=== PATIENT | male | born 1950 | race Caucasian/White ===

== ENCOUNTER 2017-05-12 08:06 | Inpatient (IN) | payer OTHER, MEDICARE ==
[2017-05-12] VITALS (21 sets, daily range): BP systolic 124–163; BP diastolic 77–109; PULSE 68–96; RESP 16–20; TEMP 98–98.3; O2SAT 93–98
[~2017-05-12] VITALS: Ht 180.3 cm; Wt 101.0 kg
[~2017-05-12 08:06] MED LIST: DOXY100T PO; SULF-154 PO
--- NOTE | 2017-05-12 08:11 | PD ---
HPI Chief Complaint: chest discomfort Time Seen by Provider: 08:11 Travel History International Travel<30 days: No Contact w/Intl Traveler<30days: No Traveled to known affect area: No History of Present Illness HPI 66-year-old male came to the emergency room with history of a week and a half of chest pressure, jaw pain and shortness of breath when he lays down. Patient says that he's been getting it even when he works but it's more pronounced at night when he goes to lay down at night. [place] 0 and he attributes to the cold weather. Once he came back to [place] his symptoms have improved slightly but he's been noticing the shortness of breath especially with the slightest exertion like tying his shoelaces. This is associated with extreme perspiration as well. His finally was concerned for his heart and asked him to come to the emergency room. Patient's blood pressure was 160/109. He said his chest pressure was almost gone at this point. But he did looked uncomfortable. Patient does not have a primary care physician and has never had a stress test for any reason. He smokes half a pack per day for past 40 years. Patient has been taking aspirin/Advil for his discomfort daily. [facility] Past Medical History Narrative Medical List of his past medical, surgical, social and family history is reviewed from the nursing note. Diminished Hearing: No Kidney Stones: Yes Immunizations Current: No Past Surgical History Genitourinary Surgery: Yes (STONE BLADDER REMOVED 12/01) Social History Alcohol Use: No Tobacco Use: Yes (PIPE) Substance Use: No Allergies-Medications (Allergen,Severity, Reaction): Coded Allergies: No Known Allergies (Verified Allergy, Unknown, 05/12/17) Comments No known drug allergies. Reported Meds & Prescriptions Reported Meds & Active Scripts Active Narrative Medication List of his home medications reviewed from the nursing note. Review of Systems Except as stated in HPI: all other systems reviewed are Neg Cardiovascular: Positive: Chest Pain or Discomfort Respiratory: Positive: Shortness of Breath Physical Exam Narrative GENERAL: Awake, alert, mild distress, anxious SKIN: Focused skin assessment warm/dry. Diaphoretic HEAD: Atraumatic. Normocephalic. EYES: Pupils equal and round. No scleral icterus. No injection or drainage. ENT: No nasal bleeding or discharge. Mucous membranes pink and moist. NECK: Trachea midline. No JVD. CARDIOVASCULAR: Regular rate and rhythm. No murmur appreciated. RESPIRATORY: No accessory muscle use. Clear to auscultation. Breath sounds equal bilaterally. GASTROINTESTINAL: Abdomen soft, non-tender, nondistended. Hepatic and splenic margins not palpable. MUSCULOSKELETAL: No obvious deformities. No clubbing. No cyanosis. No edema. NEUROLOGICAL: Awake and alert. No obvious cranial nerve deficits. Motor grossly within normal limits. Normal speech. PSYCHIATRIC: Appropriate mood and affect; insight and judgment normal. Data Data Last Documented VS Orders Orders Electrocardiogram (05/12/17 08:20) Basic Metabolic Panel (Bmp) (05/12/17 08:20) B-Type Natriuretic Peptide (05/12/17 08:20) Ckmb (Isoenzyme) Profile (05/12/17 08:20) Complete Blood Count With Diff (05/12/17 08:20) Magnesium (Mg) (05/12/17 08:20) Prothrombin Time / Inr (Pt) (05/12/17 08:20) Act Partial Throm Time (Ptt) (05/12/17 08:20) Troponin I (05/12/17 08:20) Chest, Single Ap (05/12/17 08:20) Ecg Monitoring (05/12/17 08:20) Bilateral Bp Monitoring (05/12/17 08:20) Iv Access Insert/Monitor (05/12/17 08:20) Oximetry (05/12/17 08:20) Oxygen Administration (05/12/17 08:20) Aspirin Chew (Aspirin Chew) (05/12/17 08:30) Nitroglycerin 2% Oint (Nitroglycerin 2% (05/12/17 08:30) Sodium Chloride 0.9% Flush (Ns Flush) (05/12/17 08:30) CKMB (05/12/17 08:15) CKMB% (05/12/17 08:15) Heparin Inj (Heparin Inj) (05/12/17 09:45) Heparin Inj (Heparin Inj) (05/12/17 15:45) Heparin Inj (Heparin Inj) (05/12/17 15:45) Heparin-D5w 25,000 U/250 Ml (Heparin-D5w (05/12/17 09:45) Act Partial Throm Time (Ptt) (05/12/17 09:31) Cbc No Diff, Includes Plts (05/12/17 09:31) Metoprolol Tartrate (Lopressor) (05/12/17 21:00) Metoprolol Tartrate (Lopressor) (05/12/17 09:45) Admit To Inpatient (05/12/17 ) Vital Signs (Adult) Q4H (05/12/17 09:35) Activity Oob With Assistance (05/12/17 09:35) Trade Analyst / Telemetry .CONTINUOUS (05/12/17 09:35) Diet Npo (05/12/17 Breakfast) Sodium Chlor 0.9% 1000 Ml Inj (Ns 1000 M (05/12/17 09:35) Sodium Chloride 0.9% Flush (Ns Flush) (05/12/17 09:45) Sodium Chloride 0.9% Flush (Ns Flush) (05/12/17 21:00) Acetaminophen (Tylenol) (05/12/17 09:45) Ondansetron Inj (Zofran Inj) (05/12/17 09:45) Complete Blood Count With Diff (05/13/17 06:00) Troponin I (05/12/17 09:35) Troponin I (05/12/17 15:35) Electrocardiogram (05/12/17 09:35) Resp Oxygen Leo C Titrat 1-4 L (05/12/17 ) Enoxaparin Inj (Lovenox Inj) (05/12/17 10:00) Naloxone Inj (Narcan Inj) (05/12/17 09:45) Magnesium Hydroxide Liq (Milk Of Magnesi (05/12/17 09:45) Sennosides (Senokot) (05/12/17 09:45) Bisacodyl Supp (Dulcolax Supp) (05/12/17 09:45) Lactulose Liq (Lactulose Liq) (05/12/17 09:45) Inpatient Certification (05/12/17 ) Nitroglycerin-D5w 50 Mg/250 Ml (Nitrogly (05/12/17 10:00) Admit Order (Ed Use Only) (05/12/17 09:48) Atorvastatin (Lipitor) (05/12/17 10:00) Atorvastatin (Lipitor) (05/13/17 21:00) Labs Laboratory Tests Test 05/12/17 08:15 White Blood Count 11.2 TH/MM3 Red Blood Count 4.93 MIL/MM3 Hemoglobin 15.3 GM/DL Hematocrit 46.6 % Mean Corpuscular Volume 94.5 FL Mean Corpuscular Hemoglobin 31.0 PG Mean Corpuscular Hemoglobin Concent 32.8 % Red Cell Distribution Width 13.1 % Platelet Count 202 TH/MM3 Mean Platelet Volume 9.8 FL Neutrophils (%) (Auto) 75.7 % Lymphocytes (%) (Auto) 14.9 % Monocytes (%) (Auto) 6.7 % Eosinophils (%) (Auto) 2.3 % Basophils (%) (Auto) 0.4 % Neutrophils # (Auto) 8.4 TH/MM3 Lymphocytes # (Auto) 1.7 TH/MM3 Monocytes # (Auto) 0.8 TH/MM3 Eosinophils # (Auto) 0.3 TH/MM3 Basophils # (Auto) 0.0 TH/MM3 CBC Comment DIFF FINAL Differential Comment Prothrombin Time 10.4 SEC Prothromb Time International Ratio 1.0 RATIO Activated Partial Thromboplast Time 30.8 SEC Blood Urea Nitrogen 26 MG/DL Creatinine 1.40 MG/DL Random Glucose 91 MG/DL Calcium Level 8.2 MG/DL Magnesium Level 2.2 MG/DL Sodium Level 142 MEQ/L Potassium Level 4.4 MEQ/L Chloride Level 110 MEQ/L Carbon Dioxide Level 24.8 MEQ/L Anion Gap 7 MEQ/L Estimat Glomerular Filtration Rate 51 ML/MIN Total Creatine Kinase 150 U/L Creatine Kinase MB 3.3 NG/ML Troponin I 10.70 NG/ML B-Type Natriuretic Peptide 946 PG/ML MDM Medical Decision Making Medical Screen Exam Complete: Yes Emergency Medical Condition: Yes Medical Record Reviewed: Yes Interpretation(s) Twelve-lead EKG was reviewed by me. Normal sinus rhythm, left axis deviation, LVH with LV strain, PVCs and PACs. Heart rate of 85 bpm. Differential Diagnosis Non-STEMI, ACS, congestive heart failure Narrative Course 9:40 AM blood test results are back and suggestive of a significantly elevated troponin. Patient initially was given 2 baby aspirin's and 2 inch of Nitropaste which brought his blood pressure down to 135/95. I started him on a heparin bolus and drip and nitro drip. There has been a page sent to the mold tooler. Patient is a non-STEMI and would need to be transferred to the [facility] in preparation for cardiac catheterization soon. Currently patient's chest pressure or pain is 0 out of 10. Chest x-ray has been read by the radiologist as a possible right lower lobe infiltrate which in my opinion as part of the congestive heart failure possibly. Patient does not have any history of fever. I have not put him on any antibiotics. 9:49 AM the case was just discussed with Dr. Hightower from cardiology and he is in agreement with the plan. Patient has been admitted to the CICU at the [facility] under the hospitalist service. Plan will be to do a cardiac catheterization. Critical Care Narrative Aggregate critical care time was 45 minutes. Time to perform other separately billable procedures was not included in the critical care time. My time did not include minutes spent treating any other patients simultaneously or on activities that did not directly contribute to the patient's treatment. The services I provided to this patient were to treat and/or prevent clinically significant deterioration that could result in: Non-STEMI, heparin bolus and drip, nitro drip I provided critical care services requiring my management, as noted below: Chart data review, documentation time, medication orders and management, vital sign assessments/reviewing monitor data, ordering and reviewing lab tests, ordering and interpreting/reviewing x-rays and diagnostic studies, care of the patient and discussion of the patient with the admitting physicians. Procedures EKG Prior to Arrival: No Physician Communication Physician Communication Dr. Hightower Diagnosis Primary Impression: Non-STEMI (non-ST elevated myocardial infarction) Additional Impression: Congestive heart failure Qualified Codes: I50.9 - Heart failure, unspecified Admitting Information Admitting Physician Requests: Admit Scripts Multiple Vitamins W/ Minerals (Thera M Plus) 1 Tab 1 TAB PO DAILY for Nutritional Supplement, #100 TAB 1 Refill Prov: Gracie Donovan MD 05/17/17 Pantoprazole (Pantoprazole) 40 Mg Tab 40 MG PO DAILY@06 for Prevent Stress Ulcers, #14 TAB Prov: Gracie Donovan MD 05/17/17 Docusate Sodium (Dok) 100 Mg Cap 100 MG PO BID for Constipation, #28 CAP Prov: Gracie Donovan MD 05/17/17 Oxycodone HCl/Acetaminophen (Oxycodone-Acetaminophen 5-325) 5 Mg-325 Mg Tablet 1 TAB PO Q3H Y for PAIN SCALE 1 TO 5, #30 TAB Prov: Gracie Donovan MD 05/17/[address] (Aspirin DR) 81 Mg Tabdr 81 MG PO DAILY for Blood Clot Prevention, #100 TAB 3 Refills Prov: Gracie Donovan MD 05/17/17 Lisinopril (Lisinopril) 5 Mg Tab 2.5 MG PO DAILY for Blood Pressure Management, #30 TAB 3 Refills Prov: Gracie Donovan MD 05/17/17 Metoprolol Tartrate (Metoprolol Tartrate) 25 Mg Tab 12.5 MG PO BID for Blood Pressure Management, #60 TAB 3 Refills Prov: Gracie Donovan MD 05/17/17 Atorvastatin (Atorvastatin) 40 Mg Tab 80 MG PO HS for Cholesterol Management, #60 TAB 3 Refills Prov: Gracie Donovan MD 05/17/17 Amiodarone (Amiodarone) 200 Mg Tab 400 MG PO Q8HR for Regulate Heart Beat, #28 TAB Prov: Gracie Donovan MD 05/17/17 Rachel Vasques MD May 12, 2017 08:11
[2017-05-12] MEDS ORDERED: ASPI-183 PO (08:22)
[2017-05-12] MEDS ORDERED: ASPIRIN 81 MG CHEW TAB PO ONE (08:30)
[2017-05-12] MEDS ORDERED: NITROGLYCERIN 2% OINT 1 GM PACKET TOP ONE (08:30)
[2017-05-12] MEDS ORDERED: SODIUM CHLORIDE 0.9% FLUSH 10 ML FLUSH IVF PRN (08:30)
--- NOTE | 2017-05-12 08:42 | RADRPT ---
EXAM DATE/TIME: 05/12/2017 08:31 [place] COMPARISON: No previous studies available for comparison. INDICATIONS : Short of breath x 2-3 days & chest pain x 1 week. MEDICAL HISTORY : Renal calculi. SURGICAL HISTORY : Bladder stone removal. Back surgery. ENCOUNTER: Initial ACUITY: 1 week PAIN SCORE: 5/10 LOCATION: chest FINDINGS: Mild diffuse interstitial prominence. Patchy airspace disease in the medial right lower lung zone. Ca rdiac silhouette is in the upper limits of normal given portable technique. Osseous structures are in tact. CONCLUSION: 1. Patchy airspace disease in the medial right lower lung zone concerning for pneumonia or aspiration in the appropriate clinical setting. Followup to resolution is recommended. Andre Jiang MD on May 12, 2017 at 8:38 Board Certified Radiologist. This report was verified electronically.
[2017-05-12 09:00] LABS: AUTOMATED NEUTROPHIL # 8.4 TH/MM3 (1.8-7.7); BASOPHIL % 0.4 % (0.0-2.0); EOSINOPHIL # 0.3 TH/MM3 (0-0.4); EOSINOPHIL % 2.3 % (0.0-4.0); HEMATOCRIT 46.6 % (39.0-51.0); HEMO FLAGS DIFF FINAL; LYMPH % 14.9 % (9.0-44.0); LYMPHOCYTE # 1.7 TH/MM3 (1.0-4.8); MEAN CELL VOLUME 94.5 FL (80.0-100.0); MEAN CORPUSCULAR HGB CONC 32.8 % (32.0-36.0); MONO % 6.7 % (0.0-8.0); NEUT % 75.7 % (16.0-70.0); PLATELET COUNT 202 TH/MM3 (150-450); RED BLOOD COUNT 4.93 MIL/MM3 (4.50-5.90); RED CELL DISTRIBUTION WIDTH 13.1 % (11.6-17.2); WHITE BLOOD COUNT 11.2 TH/MM3 (4.0-11.0)
[2017-05-12 09:07] LABS: CHLORIDE 110 MEQ/L (98-107); POTASSIUM 4.4 MEQ/L (3.5-5.1); SODIUM (NA) 142 MEQ/L (136-145)
[2017-05-12 09:10] LABS: ANION GAP 7 MEQ/L (5-15); BICARBONATE 24.8 MEQ/L (21.0-32.0); BLOOD UREA NITROGEN 26 MG/DL (7-18); MAGNESIUM 2.2 MG/DL (1.5-2.5)
[2017-05-12 09:12] LABS: APTT (PATIENT) 30.8 SEC (24.3-30.1); PROTHROMBIN TIME - PATIENT 10.4 SEC (9.8-11.6)
[2017-05-12 09:14] LABS: GLOMERULAR FILTRATION RATE 51 ML/MIN (>89)
[2017-05-12 09:17] LABS: CREATINE KINASE 150 U/L (39-308)
[2017-05-12] MEDS ORDERED: SODIUM CHLOR 0.9% 1000 ML INJ 1,000 ML IV SCH (09:35)
[2017-05-12] MEDS ORDERED: SODIUM CHLORIDE 0.9% FLUSH 10 ML FLUSH IV FLUSH PRN ×2 (09:45→17:15)
[2017-05-12] MEDS ORDERED: HEPARIN SODIUM - IV 10,000 UNITS/10 ML VIAL IV ONE (09:45)
[2017-05-12] MEDS ORDERED: LACTULOSE SYRUP 20 GM/30 ML CUP PO PRN (09:45)
[2017-05-12] MEDS ORDERED: NITROGLYCERIN-D5W 50 MG/250 ML 250 ML IV PRN ×2 (09:45→10:00)
[2017-05-12] MEDS ORDERED: METOPROLOL TARTRATE 25 MG TAB PO ONE (09:45)
[2017-05-12] MEDS ORDERED: SENNOSIDES 8.6 MG TAB PO PRN (09:45)
[2017-05-12] MEDS ORDERED: BISACODYL 10 MG SUPP RECTAL PRN (09:45)
[2017-05-12] MEDS ORDERED: NALOXONE HCL 0.4 MG/ML AMP IV PUSH PRN (09:45)
[2017-05-12] MEDS ORDERED: MAGNESIUM HYDROXIDE SUSP 30 ML CUP PO PRN (09:45)
[2017-05-12] MEDS ORDERED: ACETAMINOPHEN 325 MG TAB PO PRN (09:45)
[2017-05-12] MEDS ORDERED: ONDANSETRON HCL 4 MG/2 ML VIAL IVP PRN (09:45)
[2017-05-12 09:54] LABS: CKMB 3.3 NG/ML (0.5-3.6)
[2017-05-12] MEDS ORDERED: ATORVASTATIN 40 MG TAB PO ONE (10:00)
[2017-05-12] MEDS ORDERED: ENOXAPARIN SODIUM 40 MG/0.4 ML SYRINGE SQ SCH (10:00)
[2017-05-12] MEDS: HEPARIN-D5W 25,000 U/250 ML 250 ML IV PRN (10:17)
--- NOTE | 2017-05-12 10:33 | HHI.HP ---
[facility] Unknown Admission Diagnosis non-STEMI, CHF Diagnoses: Chief Complaint: Chest pain Travel History International Travel<30 Days: No Contact w/Intl Traveler <30 Da: No Traveled to Known Affected Are: No History of Present Illness Mr. Castillo is a pleasant 60-year-old male with a history of smoking who presents to the emergency department on 05/12/2017 due to week and half duration of chest pressure, jaw pain and shortness of breath. He reports substernal chest pressure and sometimes burning sensation with radiation to his jaws. He often gets diaphoresis as well. Initially he attributed his symptoms to cold weather when he was in other states. However when he came back to [place] his shortness of breath persisted. His symptoms are covered both at rest and on exertion. He shortness of breath mainly appears at night when he lays down. He denies any leg swelling. He denies any abdominal pain or changes in bowel or bladder habits. Review of Systems Except as stated in HPI: all other systems reviewed are Neg Past Family Social History Past Medical History Kidney stone Chronic back pain Past Surgical History Back surgery, bladder stone removal Reported Medications Aspirin is listed as his home medication. However patient denies taking aspirin. Allergies: Coded Allergies: No Known Allergies (Verified Allergy, Unknown, 05/12/17) Family History No significant family history of heart disease, Alzheimer's or Parkinson's. Social History Patient has a long smoking history about 40 years of smoking currently smokes half a pack a day. Denies using alcohol or illicit drugs. Physical Exam Vital Signs Vital Signs Date Time Temp Pulse Resp B/P (MAP) Pulse Ox O2 Delivery O2 Flow Rate FiO2 05/12/17 09:16 76 18 135/96 (109) 94 Room Air 05/12/17 08:56 76 18 139/91 (107) 93 Room Air 05/12/17 08:36 81 18 148/96 (113) 95 Room Air 05/12/17 08:26 154/108 (123) 159/100 (119) 05/12/17 08:25 98 Room Air 05/12/17 08:25 98 Room Air 05/12/17 08:20 97 Room Air 05/12/17 08:15 84 18 154/108 (123) 97 Room Air 05/12/17 08:06 98.0 88 18 163/109 (127) 96 Physical Exam GENERAL: This is a well-nourished, well-developed patient, in no apparent distress. SKIN: No rashes, ecchymoses or lesions. Warm and dry. HEAD: Atraumatic. Normocephalic. No temporal or scalp tenderness. EYES: Pupils equal round and reactive. No injection or drainage. ENT: Nose without bleeding, purulent drainage or septal hematoma. Airway patent. NECK: Trachea midline. No lymphadenopathy. Supple, nontender, no meningeal signs. CARDIOVASCULAR: Regular rate and rhythm without murmurs, gallops, or rubs. No JVD. RESPIRATORY: Clear to auscultation. Breath sounds equal bilaterally. No wheezes , rales, or rhonchi. Bibasilar crackles noted. GASTROINTESTINAL: Abdomen soft, non-tender, nondistended. No guarding. MUSCULOSKELETAL: Extremities without clubbing, cyanosis, or edema. NEUROLOGICAL: Awake and alert. Cranial nerves II through XII intact. No focal neurological deficits. Normal speech. Laboratory Laboratory Tests Test 05/12/17 08:15 White Blood Count 11.2 Red Blood Count 4.93 Hemoglobin 15.3 Hematocrit 46.6 Mean Corpuscular Volume 94.5 Mean Corpuscular Hemoglobin 31.0 Mean Corpuscular Hemoglobin Concent 32.8 Red Cell Distribution Width 13.1 Platelet Count 202 Mean Platelet Volume 9.8 Neutrophils (%) (Auto) 75.7 Lymphocytes (%) (Auto) 14.9 Monocytes (%) (Auto) 6.7 Eosinophils (%) (Auto) 2.3 Basophils (%) (Auto) 0.4 Neutrophils # (Auto) 8.4 Lymphocytes # (Auto) 1.7 Monocytes # (Auto) 0.8 Eosinophils # (Auto) 0.3 Basophils # (Auto) 0.0 CBC Comment DIFF FINAL Differential Comment Prothrombin Time 10.4 Prothromb Time International Ratio 1.0 Activated Partial Thromboplast Time 30.8 Blood Urea Nitrogen 26 Creatinine 1.40 Random Glucose 91 Calcium Level 8.2 Magnesium Level 2.2 Sodium Level 142 Potassium Level 4.4 Chloride Level 110 Carbon Dioxide Level 24.8 Anion Gap 7 Estimat Glomerular Filtration Rate 51 Total Creatine Kinase 150 Creatine Kinase MB 3.3 Troponin I 10.70 B-Type Natriuretic Peptide 946 Result Diagram: 05/12/1781405/12/17814 Imaging Last Impressions Chest X-Ray 05/12/17819 Signed Impressions: Service Date/Time: Friday, May 12, 2017 08:31 - CONCLUSION: 1. Patchy airspace disease in the medial right lower lung zone concerning for pneumonia or aspiration in the appropriate clinical setting. Followup to resolution is recommended. MD Manuela Ibarra VTE Risk Assessment Manuela VTE Risk Assessment: Mod/High Risk (score >= 2) Caprini Risk Assessment Model Point Value = 1 Point Value = 2 Point Value = 3 Point Value = 5 Age 41-60 Minor surgery BMI > 25 kg/m2 Swollen legs Varicose veins or History of unexplained or recurrent spontaneous Oral contraceptives or hormone replacement Sepsis (< 1 month) Serious lung disease, including pneumonia (< 1 month) Abnormal pulmonary function Acute myocardial infarction Congestive heart failure (< 1 month) History of inflammatory bowel disease Medical patient at bed rest Age 61-74 Arthroscopic surgery Major open surgery (> 45 min) Laparoscopic surgery (> 45 min) Malignancy Confined to bed (> 72 hours) Immobilizing plaster cast Central venous access Age >= 75 History of VTE Family history of VTE Factor V Leiden Prothrombin [id number] Lupus anticoagulant Anticardiolipin antibodies Elevated serum homocysteine Heparin-induced thrombocytopenia Other congenital or acquired thrombophilia Stroke (< 1 month) Elective arthroplasty Hip, pelvis, or leg fracture Acute spinal cord injury (< 1 month) Prophylaxis Regimen Total Risk Factor Score Risk Level Prophylaxis Regimen 0-1 Low Early ambulation 2 Moderate Order ONE of the following: *Sequential Compression Device (SCD) *Heparin 5000 units SQ BID 3-4 Higher Order ONE of the following medications: *Heparin 5000 units SQ TID *Enoxaparin/Lovenox 40 mg SQ daily (WT < 150 kg, CrCl > 30 mL/min) *Enoxaparin/Lovenox 30 mg SQ daily (WT < 150 kg, CrCl > 10-29 mL/min) *Enoxaparin/Lovenox 30 mg SQ BID (WT < 150 kg, CrCl > 30 mL/min) AND/OR *Sequential Compression Device (SCD) 5 or more Highest Order ONE of the following medications: *Heparin 5000 units SQ TID (Preferred with Epidurals) *Enoxaparin/Lovenox 40 mg SQ daily (WT < 150 kg, CrCl > 30 mL/min) *Enoxaparin/Lovenox 30 mg SQ daily (WT < 150 kg, CrCl > 10-29 mL/min) *Enoxaparin/Lovenox 30 mg SQ BID (WT < 150 kg, CrCl > 30 mL/min) AND *Sequential Compression Device (SCD) Assessment and Plan Problem List: (1) Non-STEMI (non-ST elevated myocardial infarction) ICD Code: I21.4 - Non-ST elevation (NSTEMI) myocardial infarction Status: Acute (2) Pneumonia ICD Code: J18.9 - Pneumonia, unspecified organism (3) Congestive heart failure ICD Code: I50.9 - Heart failure, unspecified Status: Acute (4) Tobacco abuse ICD Code: Z72.0 - Tobacco use Assessment and Plan Mr. Castillo is a pleasant 66-year-old male with a history of tobacco abuse who presents to the emergency department today due to chest pain that has been going on for one and half weeks. He complains of substernal chest pressure radiating to his jaws, occasional diaphoresis and substernal burning sensation. He also reports shortness of breath especially lying down flat. - Non-ST elevation myocardial infarction - Patient presents with typical symptoms consistent with acute coronary syndrome. - Troponin 10.7. - EKG shows no acute ST changes. We'll obtain troponin 2 and EKGs 2 - Will start patient on aspirin 81 mg daily, Lipitor 80 mg daily at bedtime and one dose now prior to catheterization. - Nitroglycerin for chest pain, metoprolol 25 mg twice a day. - Continue heparin drip. Cardiology consult pending. Patient will be transferred to the main hospital for likely catheterization. - Acute Congestive heart failure likely systolic - BNP 946. Chest x-ray not very significant for fluid overload. No leg swelling. - We'll wait for cardiology recommendations. - Start patient on Lasix 20 mg IV twice a day. - Continue metoprolol. If patient experiences any worsening of his symptoms , discontinue beta julissa. - We'll obtain 2-D echocardiogram - Possible pneumonia - Chest x-ray reviewed by me. Community-acquired pneumonia versus aspiration pneumonia. WBC is slightly elevated to 11.2. - We'll start patient on moxifloxacin 400 mg by mouth every 24 hours. This will cover both community acquired pneumonia and aspiration pneumonia. - Probable acute kidney injury - Creatinine 1.40. We do not know patient's baseline creatinine. - Avoid nephrotoxins. - Tobacco abuse - patient is counseled regarding tobacco cessation. Full code. Heparin drip. Physician Certification 2 Midnight Certification Type: Admission for Inpatient Services Order for Inpatient Services The services are ordered in accordance with Medicare regulations or non- Medicare payer requirements, as applicable. In the case of services not specified as inpatient-only, they are appropriately provided as inpatient services in accordance with the 2-midnight benchmark. Estimated LOS (days): 2 days is the estimated time the patient will need to remain in the hospital, assuming treatment plan goals are met and no additional complications. Post-Hospital Plan: Home Problem Qualifiers (1) Congestive heart failure: Qualified Codes: I50.9 - Heart failure, unspecified Angie Velez DO May 12, 2017 10:33
[2017-05-12] MEDS ORDERED: HEPARIN-NS/PF INJ 1,000 ML ONE (12:01)
[2017-05-12] MEDS ORDERED: VERAPAMIL HCL 5 MG/2 ML VIAL ONE (12:01)
[2017-05-12] MEDS ORDERED: NITROGLYCERIN INJ 5 ML ONE (12:02)
[2017-05-12] MEDS ORDERED: HEPARIN SODIUM - IV 10,000 UNITS/10 ML VIAL ONE (12:02)
--- NOTE | 2017-05-12 12:31 | EKG ---
Date Performed: 05/12/2017 Time Performed: 08:09:51 PTAGE: 66 years EKG: Sinus rhythm WITH OCCASIONAL VENTRICULAR PREMATURE COMPLEXES WITH OCCASIONAL SUPRAVENTRICULAR PREMATURE COMPLEXES POSSIBLE LEFT ATRIAL ENLARGEMENT MARKED LEFT AXIS DEVIATION LEFT VENTRICULAR HYPERTROPHY AND ST-T CH SHAY ABNORMAL ECG NO PREVIOUS TRACING DOCTOR: Dash Duarte Interpretating Date/Time 05/12/2017 12:31:11
--- NOTE | 2017-05-12 13:09 | EKG ---
Date Performed: 05/12/2017 Time Performed: 09:50:54 PTAGE: 66 years EKG: Sinus rhythm WITH OCCASIONAL SUPRAVENTRICULAR PREMATURE COMPLEXES MARKED LEFT AXIS DEVIATION LEFT VENTRICULAR HYP ERTROPHY AND ST-T CHANGE ABNORMAL ECG No significant change from prior electrocardiogram. PREVIOUS TRACING : 05/12/2017 08.09 DOCTOR: Neville Paulino Interpretating Date/Time 05/12/2017 13:07:45
[2017-05-12] MEDS ORDERED: MIDAZOLAM HCL 2 MG/2 ML VIAL ONE (13:19)
--- NOTE | 2017-05-12 13:56 | CATHPROC ---
[facility] HIS Report Study Information Study Number Admission Scheduled Start Study Start [id number] May 12 2017 9:50AM 05/12/2017 May 12 2017 11:44AM [place] Service Cardiac Catheterization Admit Source Facility Department Transfer in from another acute care facility [facility] - Traffic Supervisor Physician and Clinical Staff Initial Lebron Gregory Campaign Marketing Manager Stanislaw Holloway RN Campaign Marketing Manager Oneal Caruso Campaign Marketing Manager Francie Montes BSN Recorder Libby Leiva,(R) Scrub Yolanda RodriguezRT(R) Procedures Performed Procedure Location (Site) Vessel Name Coronary Angiograms RCA Right Coronary L Heart Cath Wire insertion Radial (right) Radial Art. Equipment Time Flaker Tender Description Size Mfg Part Number Used/Scraped TRANSDUCER, TRUWAVE [id number] 11:45 CROCKETT DELACRUZ * Used W/STOCKCOCK *[id number] TRANSDUCER, TRUWAVE [id number] 12:09 CROCKETT DELACRUZ * Used W/STOCKCOCK *[id number] *[id number] [id number] *[id number] [id number] *[id number] 12:09 MEDLINE ClubLocal PACK, CCL CUSTOM * Used *[id number] 11:45 MEDLINE [employer] PACK, CCL CUSTOM * Used *[id number] 11:45 Loogla SUPPORT, ARTERIAL ADULT 06927 *[id number] Used 12:09 Loogla SUPPORT, ARTERIAL ADULT 89021 *[id number] Used [id number] 13:30 MEDTRONIC JL 3.5 DXTERITY CATHETER FR 5 Used *[id number] BAND, RADIAL COMPRESSION TR [id number] 13:41 QuarterSpot MEDICAL 29CM Used LARGE 29 *[id number] 12:09 MERIT MEDICAL WIRE, EXCHANGE 260CM 3MMJ 260CM Used *[id number] 11:45 MERIT MEDICAL WIRE, EXCHANGE 260CM 3MMJ 260CM Used *[id number] 11:45 NAMIC MANIFOLD, 4 PORT * Used *[id number] 12:09 NAMIC MANIFOLD, 4 PORT * Used *[id number] 12:09 NYCOMED OMNIPAQUE, 350 MG, 150ML 150ML [id number] Used 11:45 NYCOMED OMNIPAQUE, 350 MG, 150ML 150ML [id number] Used 13:44 NYCOMED OMNIPAQUE, 350 MG, 150ML 150ML [id number] Used [id number] 11:45 GUAJARDO MEDICAL BLANKET,WARM AIR CCL * Used *[id number] 12:09 GUAJARDO MEDICAL BLANKET,WARM AIR CCL * Used *[id number] SHEATH, FR6 TRANSRADIAL RM*[id number] 12:09 TERO Qianmi FR 6 Used SLENDER 10CM *[id number] SHEATH, FR6 TRANSRADIAL RM*[id number] 11:45 TERUMO MEDICAL FR 6 Used SLENDER 10CM *[id number] History: Current Medications Medication Dosage/Unit Route Frequency Last Date/Time Taken ASA HEPARIN History: Allergies Allergy Reaction No Known Allergies History: Risk Factors Family History of Hypertension Dyslipidemia Previous IL Previous Heart Failure Premature CAD Yes No No No No Prior Valve Prior PCI Prior CABG Surgery No No No Cerebrovascular Peripheral Artery Chronic Lung On Dialysis Diabetes Disease Disease Disease No No No No No History: Risk Factors Selection Items Current Smoker History: Symptoms/Diagnosis Selection Items SOB History: Stress Tests Stress or Imaging Studies Performed No History: Other Current Smoker Method Packs a Day Years Used Pack Years Yes Cigarettes 1 40 40 Labs Hgb (g/dl) Hct (%) WBC (l/cumm) Platelets (thousands) 11.60-17.00 35.00-51.00 4.00-11.00 150.00-450.00 15.3 46.6 11.2 202 Glucose (mg/dl) BUN (mg/dl) Creatinine (mg/dl) BUN:Creatinine (1:x) 74.00-106.00 7.00-18.00 0.50-1.30 10.00-20.00 91 26 1.4 18.6 Na (meq/l) K (meq/l) 136.00-145.00 3.50-5.10 142 4.4 Troponin I (ng/ml) CPK (u/l) CPK-MB (ng/ML) 0.02-0.05 26.00-308.00 0.50-3.60 10.7 150 Not Drawn Medication Medication Total Dose (Bolus/Oral) Medication Total Dosage/Unit 1% XYLOCAINE 5 mL FENTANYL 25 mcg RADIAL COCKTAIL 5 mL (Bolus) VERSED 0.5 mg Medications (Bolus/Oral) Medication Time Given Dosage/Unit Administered By Reason 1% XYLOCAINE 05/12/2017 1:21:50 PM 5 mL Lebron Hightower 5 mL 1% XYLOCAINE given in lab by Lebron Hightower in Right Radial via Subcutaneous. VERSED 05/12/2017 1:22:35 PM 0.5 mg Francie Montes 0.5 mg VERSED given in lab by Francie Montes BSN via Peripheral IV. FENTANYL 05/12/2017 1:23:05 PM 25 mcg Francie Montes 25 mcg FENTANYL given in lab by Francie Montes BSN via Peripheral IV. Ntg 200mcg Verapamil 2.5mg Heparin RADIAL COCKTAIL 05/12/2017 1:23:53 PM 5 mL (Bolus) Lebron Hightower 3000U 5 mL (Bolus) RADIAL COCKTAIL given in lab by Lebron Hightower in Right Radial via Radial. Using [S olution Name]. Reason: Ntg 200mcg Verapamil 2.5mg Heparin 3000U. 3900 units of heparin Medication (Drip) Medication Time Given Dosage/Unit Concentration/Unit Diluent (ml) Solution 05/12/2017 12:06:31 IV Solutions 0 mL (IV) 1000 NaCl .9 PM Patient arrived on IV Solutions in Left Antecubital via Peripheral IV. Pump/Drip Flow = 20 ml/hr usin g NaCl .9. Initial Case Assessment Cardiovascular HR Rhythm NIBP Chest Pain 79 reg 135/91 0 Edema Present Skin color Skin None Normal Warm Dry Circulatory - Right Pulses Dorsalis Pedis Femoral Radial 2 2 2 Scale (0,1,2,3,4,d) Circulatory - Left Pulses Dorsalis Pedis Femoral Radial 1 2 Scale (0,1,2,3,4,d) Circulatory - Lower Extremities Color Lower Right Color Lower Left Normal Normal Neurological State Oriented to time-place- Alert Moves all extremities person Respiration - General Respiration Rate SpO2 (%) (B/min) 18 93 Final Case Assessment Cardiovascular HR Rhythm NIBP Chest Pain 85 reg 140/96 0 Edema Present Skin color Skin None Normal Warm Circulatory - Right Pulses Dorsalis Pedis Femoral Radial 2 2 2 Scale (0,1,2,3,4,d) Circulatory - Left Pulses Dorsalis Pedis Femoral Radial 1 2 Scale (0,1,2,3,4,d) Circulatory - Lower Extremities Color Lower Right Color Lower Left Normal Normal Neurological State Oriented to time-place- Alert Moves all extremities person Respiration - General Respiration Rate SpO2 (%) (B/min) 17 97 Chronological Log Time Study Chronological Log 11:50:15 Patient arrived via Bed. 12:04:28 Reference ECG taken Vitals capture started with the following parameters, Patient=Adult, Interval=5 min, Initial Pr nchhwv=287 mmHg, 12:04:30 Deflation Rate=5 mmHg, Cuff placed on right Arm 12:04:43 Patient Name, D.O.B, / Armband Verified By R.N. 12:04:54 Pre-op and post- op instructions given; patient acknowledges understanding of instructions. 12:04:55 Verbal Stimulation=2 Physical Stimulation=2 Airway=2 Respiration=2 TOTAL=8. (0=absent, 1=li mited, 2=present) 12:05:02 Allens test performed on the right radial and ulnar artery with a positive result by Angie on 12:05:07 HR=78 bpm, WSFF=303/91 mmhg, SpO2=93.0 %, Resp=17 B/min, Pain=0, Олег=10, Davis=2 12:06:02 Patient has been NPO for More than 6Hrs. 12:06:03 Skin Breakdown-none 12:06:07 Patient Warmer Placed on the Table. 12:06:10 A # 20 IV was noted in the Antecubital (left). Grade = 0 12:06:20 A # 20 IV was noted in the Forearm (left). Grade = 0 12:06:31 Patient arrived on IV Solutions in Left Antecubital via Peripheral IV. Pump/Drip Flow = 20 ml/hr using NaCl .9. 12:06:54 History and physical on the chart or being dictated. Assessment: Initial Case, HR=79 BPM, Rhythm=reg, SKNL=969/91 mmhg, Chest Pain=0, Edema=None, [place]=Normal, Skin = Warm, Dry Right Pulses: Cesario Ped=2, Femoral=2, Radial=2 Left Pulses: Cesario Ped=1, Femoral=2 12:06:55 Lower Right Extremities: Color=Normal Lower Left Extremities: Color=Normal Neurological: State=Alert, Ox3, HENDRIX Respiration: Resp=18 B/min, SpO2=93 % 12:07:38 Right Radial and groin(s) prepped with 2% chlorhexidine, and draped after a 3 min. waiting time. 12:10:04 HR=77 bpm, BPYS=694/96 mmhg, SpO2=94.0 %, Resp=11 B/min, Pain=0, Олег=10, Davis=2 12:12:20 Pressure channel 1 zeroed. 12:12:26 MD paged 12:15:03 HR=80 bpm, AUEJ=038/101 mmhg, SpO2=93.0 %, Resp=16 B/min, Pain=0, Олег=10, Davis=2 12:20:07 HR=80 bpm, KCMU=275/95 mmhg, SpO2=93 %, Resp=16 B/min, Pain=0, Олег=10, Davis=2 12:25:47 HR=91 bpm, HMOB=222/114 mmhg, SpO2=93 %, Resp=12 B/min, Pain=0, Олег=10, Davis=2 12:30:11 HR=90 bpm, LQKU=252/106 mmhg, SpO2=92.0 %, Resp=11 B/min, Pain=0, Олег=10, Davis=2 12:35:12 HR=92 bpm, GWXH=185/108 mmhg, SpO2=92.0 %, Resp=16 B/min, Pain=0, Олег=10, Davis=2 12:40:40 HR=96 bpm, HVPW=874/118 mmhg, SpO2=92.0 %, Resp=9 B/min, Pain=0, Олег=10, Davis=2 12:45:14 HR=95 bpm, QCTQ=344/120 mmhg, SpO2=91.0 %, Resp=18 B/min, Pain=0, Олег=10, Davis=2 12:50:13 HR=94 bpm, KVYM=125/104 mmhg, SpO2=91.0 %, Resp=18 B/min, Pain=0, Олег=10, Davis=2 12:55:10 HR=89 bpm, WWLX=930/110 mmhg, SpO2=90.0 %, Resp=15 B/min, Pain=0, Олег=10, Davis=2 13:00:19 HR=84 bpm, FBBJ=619/82 mmhg, SpO2=90.0 %, Resp=21 B/min, Pain=0, Олег=10, Davis=2 13:05:41 HR=81 bpm, YRIO=729/105 mmhg, SpO2=90.0 %, Resp=17 B/min, Олег=10 13:10:13 HR=80 bpm, GOBF=664/93 mmhg, SpO2=92.0 %, Resp=15 B/min, Олег=10 13:15:14 HR=76 bpm, ZOGP=809/96 mmhg, SpO2=96.0 %, Resp=18 B/min, Pain=0, Олег=10, Davis=2 13:20:13 HR=79 bpm, SHUF=068/106 mmhg, SpO2=93.0 %, Resp=20 B/min, Pain=0, Олег=10, Davis=2 Time Out. Correct patient, correct procedure, correct physician, power injector loaded, or not loaded with contrast with 13:21:07 surgical team present. Time Out Concurred by MD and individual staff in procedure. 13:21:33 Case Start 13:21:50 5 mL 1% XYLOCAINE given in lab by Lebron Hightower in Right Radial via Subcutaneous. 13:22:35 0.5 mg VERSED given in lab by Francie Montes BSN via Peripheral IV. 13:23:05 25 mcg FENTANYL given in lab by Frnacie Montes BSN via Peripheral IV. 13:23:13 Access site was Radial Artery. 13:23:23 A wire was inserted via Radial (right). A SHEATH, FR6 TRANSRADIAL SLENDER 10CM FR 6 was advanced into the Radial (right) using the Perc utaneous 13:23:43 technique. 5 mL (Bolus) RADIAL COCKTAIL given in lab by Lebron Hightower in Right Radial via Radial. Us ing [Solution Name]. 13:23:53 Reason: Ntg 200mcg Verapamil 2.5mg Heparin 3000U. 3900 units of heparin 13:25:14 HR=83 bpm, IGPN=559/87 mmhg, SpO2=90.0 %, Resp=20 B/min, Pain=0, Олег=10, Davis=2 A JR 4.0 INFINITI CATHETER FR 5 was advanced over a wire. OMNIPAQUE, 350 MG, 150ML 150ML was us ed for 13:25:40 injections. Recorded Pressure: LV, HR=79, Condition=Condition 1 13:27:04 (Left Ventricle) LV 122/7/14 Recorded Pressure: LV, Ao, HR=81, Condition=Condition 1 13:27:13 (Left Ventricle) LV 121/8/14, (Aorta) Ao 116/81/100 Recorded Pressure: Ao, HR=81, Condition=Condition 1 13:28:01 (Aorta) Ao 122/93/108 After removing the current catheter a JL 3.5 DXTERITY CATHETER FR 5 was advanced over a WIRE, E XCHANGE 260CM 13:29:34 3MMJ 260CM. 13:30:11 HR=82 bpm, KZCJ=608/89 mmhg, SpO2=90 %, Resp=18 B/min, Pain=0, Олег=10, Davis=2 Recorded Pressure: Ao, HR=77, Condition=Condition 1 13:31:57 (Aorta) Ao 133/96/113 13:35:12 HR=79 bpm, BLRH=037/91 mmhg, SpO2=93 %, Resp=18 B/min, Pain=0, Олег=10, Davis=2 After removing the current catheter a AL 1 INFINITI CATHETER FR 5 was advanced over a WIRE, EXC HANGE 260CM 13:35:42 3MMJ 260CM. 13:40:11 HR=85 bpm, ZXIT=201/96 mmhg, SpO2=93.0 %, Resp=17 B/min, Pain=0, Олег=10, Davis=2 13:40:27 The RCA was injected and visualized at various angles. OMNIPAQUE, 350 MG, 150ML 150ML used . Catheter was removed over a wire 13:40:36 13:42:13 Case End Assessment: Final Case, HR=85 BPM, Rhythm=reg, THOW=866/96 mmhg, Chest Pain=0, Edema=None, [place] r=Normal, Skin = Warm Right Pulses: Cesario Ped=2, Femoral=2, Radial=2 Left Pulses: Cesario Ped=1, Femoral=2 13:42:16 Lower Right Extremities: Color=Normal Lower Left Extremities: Color=Normal Neurological: State=Alert, Ox3, HENDRIX Respiration: Resp=17 B/min, SpO2=97 % 13:42:45 Catheter(s) removed without difficulty Radial Compression Device Used. 11 mLs of air placed in BAND, RADIAL COMPRESSION TR LARGE 29 29 CM. Affected 13:42:47 hand 95 % O2 saturation. 13:43:00 Sterile dressing applied to site 13:43:00 No case complications noted. 13:43:01 Cine recording checked. 13:43:03 Bedside Report will be given. 13:43:05 Contrast Scanned 13:43:07 A Left Heart Cath was performed. 13:43:11 Clinical correlaton risk stratification. 13:45:15 HR=82 bpm, AAUR=964/100 mmhg, SpO2=95.0 %, Resp=17 B/min, Pain=0, Олег=10, Davis=2 13:50:18 HR=90 bpm, UPWV=452/100 mmhg, SpO2=93 %, Resp=18 B/min, Pain=0, Олег=10, Davis=2 End Study - Contrast Media Used In Study Contrast Total Opened (mL) Total Used (mL) Total Wasted (mL) Omnipaque 55 55 0 End Study - Maximum Contrast Load Max Contrast Load (mL) 348.9 End Study - Radiation Exposure Fluoro Time (minutes) 6.0 End Study - Sheaths Sheaths Pulled By Sheath Hold Time (min) Yolanda Rodrigeuz End Study - Patient Disposition Complications Transferred To No Regular Bed
[2017-05-12] MEDS ORDERED: FUROSEMIDE 40 MG/4 ML VIAL ONE (14:31)
[2017-05-12] MEDS ORDERED: NITROGLYCERIN 1000 MCG/5 ML VIAL OTHER ONE (14:45)
[2017-05-12] MEDS ORDERED: HEPARIN SODIUM - IV 10,000 UNITS/10 ML VIAL I-ARTERIAL ONE (14:45)
[2017-05-12] MEDS ORDERED: FUROSEMIDE 40 MG/4 ML VIAL IV PUSH ONE ×2 (14:45→16:00)
[2017-05-12] MEDS ORDERED: VERAPAMIL HCL 5 MG/2 ML VIAL OTHER ONE (14:45)
[2017-05-12] MEDS ORDERED: MIDAZOLAM HCL 2 MG/2 ML VIAL IV PUSH ONE (14:45)
[2017-05-12] MEDS ORDERED: HEPARIN SODIUM - IV 10,000 UNITS/10 ML VIAL IV PRN ×2 (15:45)
--- NOTE | 2017-05-12 15:57 | MB ---
cc: LEBRON PALOMINO DO DATE OF CONSULTATION: 05/12/2017 REASON FOR CONSULTATION: N-STEMI Congestive heart failure. HISTORY OF PRESENT ILLNESS Andre Castillo is a pleasant 66-year-old male who presented to [facility] on May 12, 2017 due to chest pain on-and-off over the past week. He states that he was up north working in [place] and was noticing with the cold air. He was having trouble breathing and having some chest tightness. He thought it was just with cold air affecting his lungs and so he covered his mouth with his sweater which helped a little bit but once he got back to the hotel room he still noticed the episode. He was laid down flat and start to get somewhat short of breath and have pain into his jaw. He continues to have the symptoms and so upon arriving back to [place]. He decided he should come to the emergency room. He states that the last time he had chest pain was around 48 hours ago. In seeing him he is currently hemodynamically stable without chest pain or shortness of breath. PAST MEDICAL HISTORY 1. Kidney stones. 2. Chronic back pain. PAST SURGICAL HISTORY 1. Back surgery. 2. Bladder stone removal. ALLERGIES NO KNOWN DRUG ALLERGIES. MEDICATIONS: Denies. FAMILY HISTORY Denies premature coronary artery disease or sudden cardiac within the family. SOCIAL HISTORY The patient denies alcohol or drug abuse. He has a long history of smoking around 40 years and currently smokes about a half-pack a day. REVIEW OF SYSTEMS 14-systems were reviewed including osteopathic pertinent positives and negatives above otherwise negative. PHYSICAL EXAMINATION VITAL SIGNS: Temperature 98.0, heart rate 74, blood pressure 142/90, respirations 18, pulse ox 94% on room air. IN GENERAL: In general the patient appears well in no acute distress, alert awake and oriented x3. Extraocular muscles intact. Mucous membranes moist. NECK: Neck is supple. No JVD at 45 degrees. No carotid bruits heard bilaterally. Carotid upstroke is brisk in nature. HEART: Heart is regular rate and rhythm. Positive first and second heart sounds with no murmurs or gallops or rubs. LUNGS: Clear to auscultation bilaterally. No wheezes, rales or rhonchi. ABDOMEN: Soft, nontender, nondistended, no organomegaly noted. EXTREMITIES: The extremities show no clubbing, cyanosis or edema. SKIN: Warm, dry and intact. NEUROLOGIC: Neurologically, No focal deficits. OSTEOPATHICALLY: No kyphoscoliosis, lordosis or paraspinal tender points. LABORATORY FINDINGS Hemoglobin 15.3, hematocrit 46.6, platelets 202. Potassium 4.4, BUN 26, creatinine 1.4, troponin 10.7. BNP 946. Electrocardiogram (May 12, 2017 at 0950) sinus rhythm with a occasional PACs, left axis deviation, LVH with secondary ST-T wave changes versus ischemia. IMPRESSION 1. Chest pain concerning for coronary insufficiency. 2. N STEMI 3. Mild congestive heart failure ( [place] Heart Association class II) 4. Acute kidney injury versus chronic kidney disease. RECOMMENDATIONS 1. Mr. Castillo presented with chest pain concerning for coronary insufficiency as well as an elevated troponin. Because of this he will be transferred to [facility] for cardiac catheterization. Risks, benefits and alternatives have been explained to him and he consents as such. 2. We will check a 2-D echo to look at his overall left ventricular function, cardiac structure and possible vulvopathies. 3. He will be placed on aspirin, beta julissa and statin therapy. We will hold off on BORIS inhibitor therapy until we determine what his actual stable GFR is. 4. Further recommendations will be made after coronary visualization. Thank you for allowing me to see Andre Castillo, if there are any questions please do not hesitate to call. Lebron Palomino DO JIMMYP/ /2:11 PM /3:36 PM
--- NOTE | 2017-05-12 15:57 | MA ---
cc: LEBRON PALOMINO DO DATE 05/12/2017 PROCEDURE Left heart catheterization, coronary angiogram, moderate sedation 20 minutes. PREPROCEDURE DIAGNOSIS Non-ST elevation myocardial infarction, chest pain. POSTPROCEDURE DIAGNOSIS Multivessel coronary artery disease. MEDICATIONS 1. Versed 0.5 milligrams. 2. Fentanyl 25 mcg. 3. Heparin 3900 units. 4. Nitro 200 micrograms. 5. Verapamil 2.5 mg. CONTRAST USED 55 mL. FLUOROSCOPY 6 minutes ANESTHESIA Moderate sedation 20 minutes. ESTIMATED BLOOD LOSS 10 mL PROCEDURAL SUMMARY Neville Castillo is a pleasant 66-year-old male who presented to [facility] due to chest pain. He states that the chest pain has been on and off for the past few weeks and the last time he had it was around 48 hours ago. He continues to be short of breath and so he presented to the emergency room. On arrival he was found to have an elevated troponin and sent to [facility] for consideration of cardiac catheterization. Risks, benefits and alternatives were explained to him and he consented as such. He was brought to the lab and prepped in the usual sterile fashion. Right radial artery was accessed using a modified Seldinger technique and placement of a 5/6 [place] slender sheath. This was easily aspirated and flushed. A JR-4 was advanced over a J-wire to the ascending aorta and across the aortic valve for measurement of left ventricular pressure. This was pulled back across the aortic valve showing no significant gradient of aortic stenosis. JR-4 was attempted to engage the right coronary artery but was unable to. This was exchanged out for a JL-3.5 which was used for selective angiography of the left coronary artery system. This was exchanged out for an AL-1 which was used for selective angiography of the right coronary artery system. AL-1 was removed over a J-wire. The patient was noted to have significant left main disease but is overall hemodynamically stable without chest pain for 48 hours, and an LVEDP of 14, it was felt reasonable to place him back on a heparin drip and not place a balloon pump at this time in anticipation of possible coronary artery bypass grafting. Radial band was placed over the arteriotomy site for hemostasis. 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 FINDINGS Left main normal size vessel with adequate reflux and distal 70% disease before bifurcating into the LAD and circumflex. LAD normal-size vessel with mild luminal irregularities throughout the proximal portion and a 30% lesion in the midportion. Overall it is a type 3 LAD and wraps around the apex. It gives off two small diagonals, the first with no significant disease, the second appears to have a 60% lesion but is overall a 1 mm vessel or so. Left circumflex. Normal size vessel with mild luminal irregularities throughout the proximal portion. It gives off one large obtuse marginal which has an upper and lower branch. The upper branch is overall small and has a 60-70% ostial lesion. The lower branch has a 95% lesion which supplies three to four smaller obtuse marginals. Right coronary artery. 100% occluded in the proximal portion. Distal RCA is provided with collaterals from the left coronary artery system. It is difficult to tell if this a codominant or left dominant heart. LVEDP 14. IMPRESSION 1. Chest pain concerning for coronary insufficiency. 2. Non-ST elevation myocardial infarction. 3. Multivessel coronary artery disease for consideration of coronary artery bypass grafting. 4. Tobacco abuse. RECOMMENDATIONS 1. Mr. Castillo presented with an NSTEMI and was found to have multivessel coronary artery disease. He will be seen by CT surgery for consideration of coronary artery bypass grafting. 2. Because of the significance of his disease he will be placed back on a heparin drip one hour after his TR band is removed. 3. He will be placed on aspirin, statin and beta julissa therapy. 4. We will obtain an echo to look at his overall left ventricular function, cardiac structure and possible valvopathies. 5. If at any time he becomes hemodynamically or electrically unstable, or has chest pain unrelenting to medications then a balloon pump will need to be placed for LV support and more emergent possible surgery. Thank you for allowing me to see Andre Castillo. If there are any questions please do not hesitate to call. Lebron Palomino DO VGP/KK /2:04 PM /3:32 PM
[2017-05-12] MEDS: MOXIFLOXACIN HYDROCHLORIDE 400 MG TAB PO SCH (16:12)
[2017-05-12 16:50] LABS: HEMATOCRIT 45.5 % (39.0-51.0); MEAN CELL VOLUME 96.4 FL (80.0-100.0); MEAN CORPUSCULAR HEMOGLOBIN 32.7 PG (27.0-34.0); PLATELET COUNT 189 TH/MM3 (150-450); RED BLOOD COUNT 4.72 MIL/MM3 (4.50-5.90); RED CELL DISTRIBUTION WIDTH 13.6 % (11.6-17.2); REVIEW FLAG FINAL; WHITE BLOOD COUNT 8.7 TH/MM3 (4.0-11.0)
[2017-05-12] MEDS ORDERED: ceFAZolin 2 GM PREMIX 50 ML IV SCH (17:15)
[2017-05-12] MEDS ORDERED: DEXTROSE 50% IN WATER 50 ML VIAL(D50) IV PUSH PRN (17:15)
[2017-05-12] MEDS ORDERED: PAPAVERINE INJ 60 MG, NITROGLYCERIN INJ 100 MCG, DILTIAZEM INJ 100 MG in SODIUM CHLORID... IRRIGATION SCH (17:15)
[2017-05-12] MEDS ORDERED: CEFAZOLIN INJ 500 MG in SODIUM CHLORIDE 0.9% IRR BTL 500 ML IRRIGATION SCH (17:15)
[2017-05-12] MEDS ORDERED: CHLORHEXIDINE GLUCONATE 4% SOLN 120 ML BTL TOPICAL SCH (17:15)
--- NOTE | 2017-05-12 17:23 | ECHRPT ---
Indication: CHEST PAIN CONCLUSIONS The left ventricular systolic function is severely reduced with an estimated ejection fraction in th e range of 30-35%. Moderate concentric left ventricular hypertrophy. Mild mitral valve regurgitation. There is trace tricuspid valve regurgitation. BP: / HR: Rhythm: Technical Quality:Good FINDINGS LEFT VENTRICLE Normal left ventricular size. Moderate concentric left ventricular hypertrophy. The left ventricular systolic function is severely reduced with an estimated ejection fraction in th e range of 30-35%. Akinetic inferior wall motion. RIGHT VENTRICLE Right ventricle is grossly normal LEFT ATRIUM The left atrial size is mildly dilated. RIGHT ATRIUM The right atrial size is normal. ATRIAL SEPTUM Normal atrial septal thickness. AORTA The aortic root and proximal ascending aorta are normal in size on limited imaging. MITRAL VALVE Structurally normal mitral valve. No mitral valve stenosis. Mild mitral valve regurgitation. AORTIC VALVE Aortic valve sclerosis is present. No aortic valve regurgitation. No aortic valve stenosis. TRICUSPID VALVE Structurally normal tricuspid valve. There is trace tricuspid valve regurgitation. No tricuspid valve stenosis. PULMONARY VALVE The pulmonary valve is not well visualized. VESSELS The inferior vena cava is normal in size. PERICARDIUM No pericardial effusion. Lebron Hightower DO (Electronically Signed) Final Date:12 May 2017 17:17
[2017-05-12] MEDS: FUROSEMIDE 20 MG/2 ML VIAL IV PUSH SCH (18:01)
[2017-05-12 18:40] LABS: BLOOD, URINE NEG (NEG); COMMENT (UR) CULT NOT INDICATED; CULTURE IF INDICATED CULT NOT INDICATED; GLUCOSE,URINE NEG (NEG); KETONE, URINE NEG (NEG); MUCUS URINE FEW /lpf (OCC); NITRITE,URINE NEG (NEG); SQUAMOUS EPITHELIAL CELL URINE <1 /hpf (0-5); URINE COLOR LIGHT-YELLOW (YELLW/STRAW)
--- NOTE | 2017-05-12 19:44 | RADRPT ---
EXAM DATE/TIME: 05/12/2017 17:20 [place] COMPARISON: No previous studies available for comparison. INDICATIONS : Pre-op cardiac surgery. MEDICAL HISTORY : Hernia. Kidney stone. SURGICAL HISTORY : Back surgery. Stone removed from bladder. ENCOUNTER: Initial ACUITY: 1 day PAIN SCORE: 0/10 LOCATION: Bilateral neck PEAK SYSTOLIC VELOCITIES (cm/sec): ICA/CCA RATIO: Right: 1.3 Left: 0.9 ICA: Right: 74.2 Left: 70.9 CCA: Right: 57.8 Left: 77.4 ECA: Right: 95.3 Left: 65.9 VERTEBRAL: Right: 46.0 antegrade Left: 38.4 antegrade Elevated flow velocities and ICA/CCA ratios have been found to correlate with increased degrees of vessel stenosis, calculated as percentage of diameter relative to a normal segment of distal ICA/CCA FINDINGS: RIGHT CAROTID: Mild non-shadowing plaque in the common and internal carotid artery. No significant stenosis is visu alized. The waveforms are within normal limits. LEFT CAROTID: Minimal non-shadowing plaque in the carotid bulb. No significant stenosis is visualized. The wavefo que are within normal limits. VERTEBRAL ARTERIES: Antegrade flow is seen in both vertebral arteries. MISCELLANEOUS: None. CONCLUSION: Mild bilateral carotid plaque formation with hemodynamic profile characteristic of less than 50% sten osis. Lee Bethea MD on May 12, 2017 at 19:37 Board Certified Radiologist. This report was verified electronically.
--- NOTE | 2017-05-12 19:45 | RADRPT ---
EXAM DATE/TIME: 05/12/2017 17:32 [facility] COMPARISON: No previous studies available for comparison. INDICATIONS : Pre-op cardiac surgery. MEDICAL HISTORY : Hernia. Kidney stone. Bladder stone. SURGICAL HISTORY : Back surgery. Stone removed from bladder. ENCOUNTER: Initial ACUITY: 1 day PAIN SCORE: 0/10 LOCATION: Bilateral legs. TECHNIQUE: Venous ultrasound of the left and right leg was performed from the inguinal ligament to the proximal calf. Real-time, color Doppler and spectral tracing, compression and augmentation techniques were us ed. FINDINGS: RIGHT LEG: There is normal compressibility of the deep venous system from the inguinal region to the proximal ca lf. No echogenic clot is seen in the lumen of the common femoral, femoral, popliteal, and posterior tibial veins. There is a normal response of the venous system to proximal and distal augmentation an d respiration. LEFT LEG: There is normal compressibility of the deep venous system from the inguinal region to the proximal ca lf. No echogenic clot is seen in the lumen of the common femoral, femoral, popliteal, and posterior tibial veins. There is a normal response of the venous system to proximal and distal augmentation an d respiration. CONCLUSION: Negative for deep venous thrombosis bilateral lower extremity. Lee Bethea MD on May 12, 2017 at 19:42 Board Certified Radiologist. This report was verified electronically.
--- NOTE | 2017-05-12 19:46 | RADRPT ---
EXAM DATE/TIME: 05/12/2017 17:41 [facility] COMPARISON: No previous studies available for comparison. INDICATIONS : Pre-op cardiac surgery. MEDICAL HISTORY : Hernia. Kidney stones. SURGICAL HISTORY : Back surgery. Stone removed from bladder. ENCOUNTER: Initial ACUITY: 1 day PAIN SCORE: 0/10 LOCATION: Bilateral legs. GREATER SAPHENOUS VEIN THIGH: PROXIMAL: Right 5 mm Left 4 mm MID: Right 4 mm Left 4 mm DISTAL: Right 4 mm Left 3 mm CALF: PROXIMAL: Right 1 mm Left 2 mm MID: Right 1 mm Left 2 mm DISTAL: Right Non-visualized Left Non-visualized FINDINGS: The venous system of the lower extremities are patent by color Doppler imaging. Measurements of the leg veins (in mm) are listed above. CONCLUSION: Bilateral venous mapping with measurements listed above. Lee Bethea MD on May 12, 2017 at 19:43 Board Certified Radiologist. This report was verified electronically.
[2017-05-12 20:24] LABS: APTT (PATIENT) 31.2 SEC (24.3-30.1)
--- NOTE | 2017-05-12 20:49 | RADRPT ---
EXAM DATE/TIME: 05/12/2017 20:19 [facility] COMPARISON: No previous studies available for comparison. INDICATIONS : Short of breath, evaluate for edema. RADIATION DOSE: 5.1 CTDIvol (mGy) MEDICAL HISTORY : None SURGICAL HISTORY : Hernia sx. ENCOUNTER: Initial ACUITY: 2 days PAIN SCALE: 3/10 LOCATION: Bilateral chest TECHNIQUE: Volumetric scanning of the chest was performed. Using automated exposure control and adjustment of t he mA and/or kV according to patient size, radiation dose was kept as low as reasonably achievable to obtain optimal diagnostic quality images. DICOM format image data is available electronically for r eview and comparison. Follow-up recommendations for detected pulmonary nodules are based at a minimum on nodule size and pa tient risk factors according to Fleischner Society Guidelines. FINDINGS: LUNGS: Focal area of consolidation measuring 2.6 cm in the posterior medial right lung and a 1 cm area of op acity in the posterior right apex. There is also compressive atelectasis adjacent to the bilateral p leural effusions. PLEURAE: 2.5 cm right pleural effusion and 7 mm left pleural effusion. MEDIASTINUM: AP window adenopathy measuring up to 1.6 cm. Subcarinal node measures 2.0 cm. Coronary artery calci fication. AXILLAE: Within normal limits. No lymphadenopathy. MUSCULOSKELETAL: Within normal limits for patient age. MISCELLANEOUS: The visualized upper abdominal organs demonstrate no acute abnormality. CONCLUSION: 1. Bilateral pleural effusions, right greater than left. 2. 2 focal areas of consolidation in the right lung. There is also bibasilar atelectasis or infiltra te adjacent to the pleural effusions. 3. Mediastinal adenopathy. Lee Bethea MD on May 12, 2017 at 20:44 Board Certified Radiologist. This report was verified electronically.
[2017-05-12] MEDS: SODIUM CHLORIDE 0.9% FLUSH 10 ML FLUSH IV FLUSH SCH ×2 (21:00→22:29)
[2017-05-12] MEDS: METOPROLOL TARTRATE 25 MG TAB PO SCH (22:29)
[2017-05-13] VITALS (27 sets, daily range): BP systolic 103–119; BP diastolic 62–84; PULSE 60–78; RESP 20; TEMP 97.9–98.6; O2SAT 94–96
[2017-05-13] MEDS ORDERED: METOPROLOL TARTRATE 25 MG TAB PO SCH (05:00)
[2017-05-13 06:46] LABS: AUTOMATED NEUTROPHIL # 8.3 TH/MM3 (1.8-7.7); BASOPHIL % 0.4 % (0.0-2.0); EOSINOPHIL # 0.3 TH/MM3 (0-0.4); EOSINOPHIL % 2.7 % (0.0-4.0); HEMATOCRIT 44.5 % (39.0-51.0); HEMO FLAGS DIFF FINAL; LYMPH % 18.9 % (9.0-44.0); LYMPHOCYTE # 2.2 TH/MM3 (1.0-4.8); MEAN CELL VOLUME 96.2 FL (80.0-100.0); MEAN CORPUSCULAR HEMOGLOBIN 32.5 PG (27.0-34.0); MEAN CORPUSCULAR HGB CONC 33.8 % (32.0-36.0); MONO % 6.9 % (0.0-8.0); NEUT % 71.1 % (16.0-70.0); PLATELET COUNT 179 TH/MM3 (150-450); RED BLOOD COUNT 4.63 MIL/MM3 (4.50-5.90); RED CELL DISTRIBUTION WIDTH 13.8 % (11.6-17.2); WHITE BLOOD COUNT 11.6 TH/MM3 (4.0-11.0)
[2017-05-13 06:57] LABS: APTT (PATIENT) 39.1 SEC (24.3-30.1); INTERNATIONAL NORMALIZED RATIO 1.1 RATIO; PROTHROMBIN TIME - PATIENT 10.8 SEC (9.8-11.6)
[2017-05-13 07:20] LABS: ALT (GPT) 32 U/L (12-78); ANION GAP 7 MEQ/L (5-15); AST (GOT) 25 U/L (15-37); BICARBONATE 27.1 MEQ/L (21.0-32.0); BLOOD UREA NITROGEN 25 MG/DL (7-18); CHLORIDE 106 MEQ/L (98-107); GLOMERULAR FILTRATION RATE 48 ML/MIN (>89); POTASSIUM 4.2 MEQ/L (3.5-5.1); SODIUM (NA) 140 MEQ/L (136-145)
[2017-05-13 07:23] LABS: ALKALINE PHOSPHATASE 78 U/L (45-117); TOTAL BILIRUBIN ADULT 1.2 MG/DL (0.2-1.0)
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
[2017-05-13] MEDS: FUROSEMIDE 20 MG/2 ML VIAL IV PUSH SCH ×2 (10:02→16:44)
[2017-05-13] MEDS: ASPIRIN EC 81 MG TABEC PO SCH (10:02)
[2017-05-13] MEDS: SODIUM CHLORIDE 0.9% FLUSH 10 ML FLUSH IV FLUSH SCH ×4 (10:02→21:00)
[2017-05-13] MEDS: METOPROLOL TARTRATE 25 MG TAB PO SCH ×2 (10:02→21:14)
[2017-05-13 10:18] LABS: HEMOGLOBIN A1a 0.8 %; HEMOGLOBIN Ao 84.5 %; HEMOGLOBIN F 1.1 %; HEMOGLOBIN LA1C 2.6 %; HEMOGLOBIN P3 5.3 %
--- NOTE | 2017-05-13 11:26 | PD.CARD.PN ---
Subjective Subjective Remarks No events overnight Off oxygen No SOB/CP Telemetry showing episode of SVT, asymptomatic Objective Medications Current Medications Medications (Trade) Dose Ordered Sig/[place] Route Start Time Stop Time Status Last Admin (Heparin Inj) 5,000 units UNSCH PRN IV 05/12/17 15:45 (Heparin Inj) 2,500 units UNSCH PRN IV 05/12/17 15:45 05/13/17 07:13 Heparin Sodium/ Dextrose 250 ml @ 10 mls/hr TITRATE PRN IV 05/12/17 09:45 05/12/17 10:17 (Lipitor) 80 mg HS PO 05/13/17 21:00 (Lopressor) 25 mg Q12HR PO 05/12/17 21:00 05/13/17 10:02 (NS Flush) 2 ml UNSCH PRN IV FLUSH 05/12/17 09:45 (NS Flush) 2 ml BID IV FLUSH 05/12/17 21:00 05/13/17 10:02 (Tylenol) 650 mg Q4H PRN PO 05/12/17 09:45 (Zofran Inj) 4 mg Q6H PRN IVP 05/12/17 09:45 (Narcan Inj) 0.4 mg UNSCH PRN IV PUSH 05/12/17 09:45 (Milk Of Magnesia Liq) 30 ml Q12H PRN PO 05/12/17 09:45 (Senokot) 17.2 mg Q12H PRN PO 05/12/17 09:45 (Dulcolax Supp) 10 mg DAILY PRN RECTAL 05/12/17 09:45 (Lactulose Liq) 30 ml DAILY PRN PO 05/12/17 09:45 (Ecotrin Ec) 81 mg DAILY PO 05/13/17 09:00 05/13/17 10:02 (Lasix Inj) 20 mg BID@09,18 IV PUSH 05/12/17 18:00 05/13/17 10:02 (Avelox) 400 mg Q24H PO 05/12/17 14:00 05/12/17 16:12 (NS Flush) 2 ml BID IV FLUSH 05/12/17 21:00 05/13/17 10:03 (NS Flush) 2 ml UNSCH PRN IV FLUSH 05/12/17 17:15 Papaverine HCl 60 mg/Nitroglycerin 100 mcg/Diltiazem HCl 100 mg/Sodium Chloride 100 ml @ 0 mls/hr DELIVERY TECHNICIAN IRRIGATION 05/12/17 17:15 05/19/17 17:14 Cefazolin Sodium 500 mg/Sodium Chloride 505 ml @ 0 mls/hr DELIVERY TECHNICIAN IRRIGATION 05/12/17 17:15 05/19/17 17:14 Cefazolin Sodium/ Dextrose 50 ml @ 150 mls/hr DELIVERY TECHNICIAN IV 05/12/17 17:15 05/19/17 17:14 (Lopressor) 12.5 mg DELIVERY TECHNICIAN PO 05/13/17 05:00 05/19/17 04:59 (Hibiclens 4% Top Soln) 1 applic DELIVERY TECHNICIAN TOPICAL 05/12/17 17:15 05/19/17 17:14 Insulin Human Regular 100 units/ Sodium Chloride 100 ml @ 3 mls/hr TITRATE PRN IV 05/12/17 17:15 05/19/17 17:14 (D50w (Vial) Inj) 50 ml UNSCH PRN IV PUSH 05/12/17 17:15 Vital Signs / I&O Vital Signs Date Time Temp Pulse Resp B/P (MAP) Pulse Ox O2 Delivery O2 Flow Rate FiO2 05/13/17 10:49 94 21 05/13/17 08:00 97.9 68 20 119/84 (96) 94 05/13/17 08:00 72 05/13/17 07:00 70 05/13/17 06:00 72 05/13/17 05:00 77 05/13/17 04:00 74 05/13/17 03:00 98.5 74 20 110/70 (83) 96 05/13/17 02:00 76 05/13/17 01:00 78 05/13/17 00:00 72 05/13/17 00:00 75 05/12/17 23:00 98.1 77 20 129/86 (100) 96 05/12/17 22:00 74 05/12/17 21:00 70 05/12/17 20:00 80 05/12/17 19:00 98.3 75 18 124/77 (93) 96 05/12/17 18:00 68 05/12/17 17:00 76 05/12/17 16:00 96 05/12/17 15:07 98.2 74 16 147/108 (121) 96 05/12/17 15:00 85 05/12/17 14:09 98.0 92 16 151/107 (122) 94 I/O 05/12/17 05/12/17 05/12/17 05/13/17 05/13/17 05/13/17 07:00 15:00 23:00 07:00 15:00 23:00 Intake Total 110 ml 450 ml 240 ml Output Total 1375 ml 1125 ml Balance 110 ml -925 ml -885 ml Intake Oral 450 ml 240 ml IV Total 110 ml Output Urine Total 1375 ml 1125 ml Physical Exam GENERAL: NAD, AAOx3 SKIN: Warm and dry. HEAD: Atraumatic. Normocephalic. EYES: Pupils equal and round. No scleral icterus. No injection or drainage. ENT: No nasal bleeding or discharge. Mucous membranes pink and moist. NECK: Trachea midline. No JVD. CARDIOVASCULAR: Regular rate and rhythm. RESPIRATORY: No accessory muscle use. Decreased breath sounds bilaterally GASTROINTESTINAL: Abdomen soft, non-tender, nondistended. Hepatic and splenic margins not palpable. MUSCULOSKELETAL: Extremities without clubbing, cyanosis, or edema. No obvious deformities. Right radial no hematoma, neurovascularly intact distally NEUROLOGICAL: Awake and alert. No obvious cranial nerve deficits. Motor grossly within normal limits. Five out of 5 muscle strength in the arms and legs. Normal speech. PSYCHIATRIC: Appropriate mood and affect; insight and judgment normal. Laboratory Laboratory Tests Test 05/12/17 15:50 05/12/17 17:57 05/12/17 18:25 05/12/17 19:24 White Blood Count 8.7 TH/MM3 Red Blood Count 4.72 MIL/MM3 Hemoglobin 15.5 GM/DL Hematocrit 45.5 % Mean Corpuscular Volume 96.4 FL Mean Corpuscular Hemoglobin 32.7 PG Mean Corpuscular Hemoglobin Concent 34.0 % Red Cell Distribution Width 13.6 % Platelet Count 189 TH/MM3 Mean Platelet Volume 9.6 FL Activated Partial Thromboplast Time 35.0 SEC 31.2 SEC Troponin I 8.72 NG/ML Nasal Screen MRSA (PCR) MRSA NOT DETECTED Urine Color LIGHT-YELLOW Urine Turbidity CLEAR Urine pH 5.0 Urine Specific [place] 1.012 Urine Protein NEG mg/dL Urine Glucose (UA) NEG mg/dL Urine Ketones NEG mg/dL Urine Occult Blood NEG Urine Nitrite NEG Urine Bilirubin NEG Urine Urobilinogen LESS THAN 2.0 MG/DL Urine Leukocyte Esterase TRACE Urine RBC 1 /hpf Urine WBC 3 /hpf Urine Squamous Epithelial Cells <1 /hpf Urine Mucus FEW /lpf Microscopic Urinalysis Comment CULT NOT INDICATED Test 05/13/17 00:21 05/13/17 05:42 05/13/17 05:48 Troponin I 7.93 NG/ML Blood Urea Nitrogen 25 MG/DL Creatinine 1.48 MG/DL Random Glucose 82 MG/DL Total Protein 6.9 GM/DL Albumin 3.2 GM/DL Calcium Level 8.2 MG/DL Alkaline Phosphatase 78 U/L Aspartate Amino Transf (AST/SGOT) 25 U/L Alanine Aminotransferase (ALT/SGPT) 32 U/L Total Bilirubin 1.2 MG/DL Sodium Level 140 MEQ/L Potassium Level 4.2 MEQ/L Chloride Level 106 MEQ/L Carbon Dioxide Level 27.1 MEQ/L Anion Gap 7 MEQ/L Estimat Glomerular Filtration Rate 48 ML/MIN Hemoglobin A1c 5.4 % White Blood Count 11.6 TH/MM3 Red Blood Count 4.63 MIL/MM3 Hemoglobin 15.1 GM/DL Hematocrit 44.5 % Mean Corpuscular Volume 96.2 FL Mean Corpuscular Hemoglobin 32.5 PG Mean Corpuscular Hemoglobin Concent 33.8 % Red Cell Distribution Width 13.8 % Platelet Count 179 TH/MM3 Mean Platelet Volume 9.6 FL Neutrophils (%) (Auto) 71.1 % Lymphocytes (%) (Auto) 18.9 % Monocytes (%) (Auto) 6.9 % Eosinophils (%) (Auto) 2.7 % Basophils (%) (Auto) 0.4 % Neutrophils # (Auto) 8.3 TH/MM3 Lymphocytes # (Auto) 2.2 TH/MM3 Monocytes # (Auto) 0.8 TH/MM3 Eosinophils # (Auto) 0.3 TH/MM3 Basophils # (Auto) 0.0 TH/MM3 CBC Comment DIFF FINAL Differential Comment Prothrombin Time 10.8 SEC Prothromb Time International Ratio 1.1 RATIO Activated Partial Thromboplast Time 39.1 SEC Assessment and Plan Problem List: (1) Multi-vessel coronary artery stenosis ICD Codes: I25.10 - Atherosclerotic heart disease of [place] coronary artery without angina pectoris (2) Non-STEMI (non-ST elevated myocardial infarction) ICD Codes: I21.4 - Non-ST elevation (NSTEMI) myocardial infarction Status: Acute (3) Tobacco abuse ICD Codes: Z72.0 - Tobacco use (4) Congestive heart failure ICD Codes: I50.9 - Heart failure, unspecified Status: Acute Assessment and Plan 1) MVCAD for consideration of CABG Plan for possible tomorrow 2) Acute systolic heart failure, EF 30-35% 3) Con't Heparin for MVCAD 4) Con't diuresis Problem Qualifiers (1) Congestive heart failure: Qualified Codes: I50.9 - Heart failure, unspecified Lebron Hightower DO May 13, 2017 11:26
--- NOTE | 2017-05-13 12:22 | PD.CAR.PN ---
CVT Progress Note Subjective/Hospital Course: RISK SCORES About the STS Risk Calculator Procedure: CAB Only Risk of Mortality: 1.62% Morbidity or Mortality: 19.053% Long Length of Stay: 7.735% Short Length of Stay: 38.883% Permanent Stroke: 0.628% Prolonged Ventilation: 13.173% DSW Infection: 0.757% Renal Failure: 5.04% Reoperation: 6.485% Objective: Vital Signs Date Time Temp Pulse Resp B/P (MAP) Pulse Ox O2 Delivery O2 Flow Rate FiO2 05/13/17 10:49 94 21 05/13/17 08:00 97.9 68 20 119/84 (96) 94 05/13/17 08:00 72 05/13/17 07:00 70 05/13/17 06:00 72 05/13/17 05:00 77 05/13/17 04:00 74 05/13/17 03:00 98.5 74 20 110/70 (83) 96 05/13/17 02:00 76 05/13/17 01:00 78 05/13/17 00:00 72 05/13/17 00:00 75 05/12/17 23:00 98.1 77 20 129/86 (100) 96 05/12/17 22:00 74 05/12/17 21:00 70 05/12/17 20:00 80 05/12/17 19:00 98.3 75 18 124/77 (93) 96 05/12/17 18:00 68 05/12/17 17:00 76 05/12/17 16:00 96 05/12/17 15:07 98.2 74 16 147/108 (121) 96 05/12/17 15:00 85 05/12/17 14:09 98.0 92 16 151/107 (122) 94 Labs: Laboratory Tests Test 05/13/17 00:21 05/13/17 05:42 05/13/17 05:48 Troponin I 7.93 NG/ML (0.02-0.05) Blood Urea Nitrogen 25 MG/DL (7-18) Creatinine 1.48 MG/DL (0.60-1.30) Random Glucose 82 MG/DL (74-106) Total Protein 6.9 GM/DL (6.4-8.2) Albumin 3.2 GM/DL (3.4-5.0) Calcium Level 8.2 MG/DL (8.5-10.1) Alkaline Phosphatase 78 U/L (45-117) Aspartate Amino Transf (AST/SGOT) 25 U/L (15-37) Alanine Aminotransferase (ALT/SGPT) 32 U/L (12-78) Total Bilirubin 1.2 MG/DL (0.2-1.0) Sodium Level 140 MEQ/L (136-145) Potassium Level 4.2 MEQ/L (3.5-5.1) Chloride Level 106 MEQ/L (98-107) Carbon Dioxide Level 27.1 MEQ/L (21.0-32.0) Anion Gap 7 MEQ/L (5-15) Estimat Glomerular Filtration Rate 48 ML/MIN (>89) Hemoglobin A1c 5.4 % (4.3-6.0) White Blood Count 11.6 TH/MM3 (4.0-11.0) Red Blood Count 4.63 MIL/MM3 (4.50-5.90) Hemoglobin 15.1 GM/DL (13.0-17.0) Hematocrit 44.5 % (39.0-51.0) Mean Corpuscular Volume 96.2 FL (80.0-100.0) Mean Corpuscular Hemoglobin 32.5 PG (27.0-34.0) Mean Corpuscular Hemoglobin Concent 33.8 % (32.0-36.0) Red Cell Distribution Width 13.8 % (11.6-17.2) Platelet Count 179 TH/MM3 (150-450) Mean Platelet Volume 9.6 FL (7.0-11.0) Neutrophils (%) (Auto) 71.1 % (16.0-70.0) Lymphocytes (%) (Auto) 18.9 % (9.0-44.0) Monocytes (%) (Auto) 6.9 % (0.0-8.0) Eosinophils (%) (Auto) 2.7 % (0.0-4.0) Basophils (%) (Auto) 0.4 % (0.0-2.0) Neutrophils # (Auto) 8.3 TH/MM3 (1.8-7.7) Lymphocytes # (Auto) 2.2 TH/MM3 (1.0-4.8) Monocytes # (Auto) 0.8 TH/MM3 (0-0.9) Eosinophils # (Auto) 0.3 TH/MM3 (0-0.4) Basophils # (Auto) 0.0 TH/MM3 (0-0.2) CBC Comment DIFF FINAL Differential Comment Prothrombin Time 10.8 SEC (9.8-11.6) Prothromb Time International Ratio 1.1 RATIO Activated Partial Thromboplast Time 39.1 SEC (24.3-30.1) Result Diagram: 05/13/17 0548 05/13/17 0542 (1) Multi-vessel coronary artery stenosis (2) Non-STEMI (non-ST elevated myocardial infarction) (3) Tobacco abuse (4) Congestive heart failure Problem Qualifiers (1) Congestive heart failure: Qualified Codes: I50.9 - Heart failure, unspecified Annalise Shelley May 13, 2017 12:21
--- NOTE | 2017-05-13 12:40 | PD.CAR.PN ---
CVT Progress Note Subjective/Hospital Course: 66-year-old male, He has not seen a primary care physician in quite some time , but has signed up with [facility] in [place]. Presented to the emergency room due to a one week history of chest pressure radiating to his jaw and becoming short of breath. He was unable to lie flat. He has also had some cough and congestion for the past one week. Said he had some yellowish sputum. 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 During his workup his EKG showed sinus rhythm with some left ventricular hypertrophy, some T-wave inversion in the lateral leads. Troponin went as high as 10. He underwent cardiac cath 05/[address] Hightower which showed left main disease of 70%. The mid distal LAD 40%. The diagonal 30. The obtuse marginal 95%. The RCA 100%. The echocardiogram showed EF 30-35% moderate LVH , severely reduced LV systolic function. We were consulted due to the multivessel coronary disease. Ct chest noted , bilateral effusion R> L 2/2 CHF recent VT , mediastinal adenopathy, will need f/u CT as outpt , possible CAP on avelox, no fever PAST MEDICAL HISTORY 1. History of kidney stones. 2. Chronic back pain. 05/13 pain free last pm, for surgery in am Objective: Vital Signs Date Time Temp Pulse Resp B/P (MAP) Pulse Ox O2 Delivery O2 Flow Rate FiO2 05/13/17 10:49 94 21 05/13/17 08:00 97.9 68 20 119/84 (96) 94 05/13/17 08:00 72 05/13/17 07:00 70 05/13/17 06:00 72 05/13/17 05:00 77 05/13/17 04:00 74 05/13/17 03:00 98.5 74 20 110/70 (83) 96 05/13/17 02:00 76 05/13/17 01:00 78 05/13/17 00:00 72 05/13/17 00:00 75 05/12/17 23:00 98.1 77 20 129/86 (100) 96 05/12/17 22:00 74 05/12/17 21:00 70 05/12/17 20:00 80 05/12/17 19:00 98.3 75 18 124/77 (93) 96 05/12/17 18:00 68 05/12/17 17:00 76 05/12/17 16:00 96 05/12/17 15:07 98.2 74 16 147/108 (121) 96 05/12/17 15:00 85 05/12/17 14:09 98.0 92 16 151/107 (122) 94 Labs: Laboratory Tests Test 05/13/17 05:42 05/13/17 05:48 Blood Urea Nitrogen 25 MG/DL (7-18) Creatinine 1.48 MG/DL (0.60-1.30) Random Glucose 82 MG/DL (74-106) Total Protein 6.9 GM/DL (6.4-8.2) Albumin 3.2 GM/DL (3.4-5.0) Calcium Level 8.2 MG/DL (8.5-10.1) Alkaline Phosphatase 78 U/L (45-117) Aspartate Amino Transf (AST/SGOT) 25 U/L (15-37) Alanine Aminotransferase (ALT/SGPT) 32 U/L (12-78) Total Bilirubin 1.2 MG/DL (0.2-1.0) Sodium Level 140 MEQ/L (136-145) Potassium Level 4.2 MEQ/L (3.5-5.1) Chloride Level 106 MEQ/L (98-107) Carbon Dioxide Level 27.1 MEQ/L (21.0-32.0) Anion Gap 7 MEQ/L (5-15) Estimat Glomerular Filtration Rate 48 ML/MIN (>89) Hemoglobin A1c 5.4 % (4.3-6.0) White Blood Count 11.6 TH/MM3 (4.0-11.0) Red Blood Count 4.63 MIL/MM3 (4.50-5.90) Hemoglobin 15.1 GM/DL (13.0-17.0) Hematocrit 44.5 % (39.0-51.0) Mean Corpuscular Volume 96.2 FL (80.0-100.0) Mean Corpuscular Hemoglobin 32.5 PG (27.0-34.0) Mean Corpuscular Hemoglobin Concent 33.8 % (32.0-36.0) Red Cell Distribution Width 13.8 % (11.6-17.2) Platelet Count 179 TH/MM3 (150-450) Mean Platelet Volume 9.6 FL (7.0-11.0) Neutrophils (%) (Auto) 71.1 % (16.0-70.0) Lymphocytes (%) (Auto) 18.9 % (9.0-44.0) Monocytes (%) (Auto) 6.9 % (0.0-8.0) Eosinophils (%) (Auto) 2.7 % (0.0-4.0) Basophils (%) (Auto) 0.4 % (0.0-2.0) Neutrophils # (Auto) 8.3 TH/MM3 (1.8-7.7) Lymphocytes # (Auto) 2.2 TH/MM3 (1.0-4.8) Monocytes # (Auto) 0.8 TH/MM3 (0-0.9) Eosinophils # (Auto) 0.3 TH/MM3 (0-0.4) Basophils # (Auto) 0.0 TH/MM3 (0-0.2) CBC Comment DIFF FINAL Differential Comment Prothrombin Time 10.8 SEC (9.8-11.6) Prothromb Time International Ratio 1.1 RATIO Activated Partial Thromboplast Time 39.1 SEC (24.3-30.1) Result Diagram: 05/13/17 0548 05/13/17 0542 Telemetry: NSR (1) Multi-vessel coronary artery stenosis (2) Non-STEMI (non-ST elevated myocardial infarction) Plan: on ASa, statin , BB for surgery in am (3) Tobacco abuse (4) Congestive heart failure Plan: on lasix, monitor labs closely (5) FRANK (acute kidney injury) Plan: monitor indices (6) Pneumonia Plan: on avelox, pulm toileting nebs ezpap , Problem Qualifiers (1) Congestive heart failure: Qualified Codes: I50.9 - Heart failure, unspecified Annalise Shelley May 13, 2017 12:40
[2017-05-13 14:12] LABS: APTT (PATIENT) 44.1 SEC (24.3-30.1)
[2017-05-13] MEDS: MOXIFLOXACIN HYDROCHLORIDE 400 MG TAB PO SCH (16:43)
[2017-05-13] MEDS: HEPARIN-D5W 25,000 U/250 ML 250 ML IV PRN (16:48)
--- NOTE | 2017-05-13 19:21 | HHI.PR ---
Subjective Remarks Denies cp/sob. Stable vital signs Objective Vitals Vital Signs Date Time Temp Pulse Resp B/P (MAP) Pulse Ox O2 Delivery O2 Flow Rate FiO2 05/13/17 15:03 60 20 103/62 (76) 96 05/13/17 12:30 70 20 106/68 (81) 96 05/13/17 10:49 94 21 05/13/17 08:00 97.9 68 20 119/84 (96) 94 05/13/17 08:00 72 05/13/17 07:00 70 05/13/17 06:00 72 05/13/17 05:00 77 05/13/17 04:00 74 05/13/17 03:00 98.5 74 20 110/70 (83) 96 05/13/17 02:00 76 05/13/17 01:00 78 05/13/17 00:00 72 05/13/17 00:00 75 05/12/17 23:00 98.1 77 20 129/86 (100) 96 05/12/17 22:00 74 05/12/17 21:00 70 05/12/17 20:00 80 I/O 05/12/17 05/12/17 05/12/17 05/13/17 05/13/17 05/13/17 07:00 15:00 23:00 07:00 15:00 23:00 Intake Total 110 ml 450 ml 240 ml Output Total 1375 ml 1125 ml Balance 110 ml -925 ml -885 ml Intake Oral 450 ml 240 ml IV Total 110 ml Output Urine Total 1375 ml 1125 ml Result Diagram: 05/13/17 0548 05/13/17 0542 Imaging Last Impressions Chest X-Ray 05/12/17 0820 Signed Impressions: Service Date/Time: Friday, May 12, 2017 08:31 - CONCLUSION: 1. Patchy airspace disease in the medial right lower lung zone concerning for pneumonia or aspiration in the appropriate clinical setting. Followup to resolution is recommended. Andre Jiang MD Lower Extremity Ultrasound 05/12/17 0000 Signed Impressions: Service Date/Time: Friday, May 12, 2017 17:41 - CONCLUSION: Bilateral venous mapping with measurements listed above. Lee Bethea MD Chest CT 05/12/17 0000 Signed Impressions: Service Date/Time: Friday, May 12, 2017 20:19 - CONCLUSION: 1. Bilateral pleural effusions, right greater than left. 2. 2 focal areas of consolidation in the right lung. There is also bibasilar atelectasis or infiltrate adjacent to the pleural effusions. 3. Mediastinal adenopathy. Lee Bethea MD Carotid Artery Ultrasound 05/12/17 0000 Signed Impressions: Service Date/Time: Friday, May 12, 2017 17:20 - CONCLUSION: Mild bilateral carotid plaque formation with hemodynamic profile characteristic of less than 50%% stenosis. Lee Bethea MD Objective Remarks AAOx3 NAD PERRLA Clear lungs BL - no wheezing or rhonchi Soft, non tender abdomen No edema in lower extremities Medications and IVs Current Medications Medications (Trade) Dose Ordered Sig/Dayami Route Start Time Stop Time Status Last Admin (Heparin Inj) 5,000 units UNSCH PRN IV 05/12/17 15:45 (Heparin Inj) 2,500 units UNSCH PRN IV 05/12/17 15:45 05/13/17 07:13 Heparin Sodium/ Dextrose 250 ml @ 10 mls/hr TITRATE PRN IV 05/12/17 09:45 05/13/17 16:48 (Lipitor) 80 mg HS PO 05/13/17 21:00 (Lopressor) 25 mg Q12HR PO 05/12/17 21:00 05/13/17 10:02 (NS Flush) 2 ml UNSCH PRN IV FLUSH 05/12/17 09:45 (NS Flush) 2 ml BID IV FLUSH 05/12/17 21:00 05/13/17 10:02 (Tylenol) 650 mg Q4H PRN PO 05/12/17 09:45 (Zofran Inj) 4 mg Q6H PRN IVP 05/12/17 09:45 (Narcan Inj) 0.4 mg UNSCH PRN IV PUSH 05/12/17 09:45 (Milk Of Magnesia Liq) 30 ml Q12H PRN PO 05/12/17 09:45 (Senokot) 17.2 mg Q12H PRN PO 05/12/17 09:45 (Dulcolax Supp) 10 mg DAILY PRN RECTAL 05/12/17 09:45 (Lactulose Liq) 30 ml DAILY PRN PO 05/12/17 09:45 (Ecotrin Ec) 81 mg DAILY PO 05/13/17 09:00 05/13/17 10:02 (Lasix Inj) 20 mg BID@,18 IV PUSH 05/12/17 18:00 05/13/17 16:44 (Avelox) 400 mg Q24H PO 05/12/17 14:00 05/13/17 16:43 (NS Flush) 2 ml BID IV FLUSH 05/12/17 21:00 05/13/17 10:03 (NS Flush) 2 ml UNSCH PRN IV FLUSH 05/12/17 17:15 Papaverine HCl 60 mg/Nitroglycerin 100 mcg/Diltiazem HCl 100 mg/Sodium Chloride 100 ml @ 0 mls/hr DOOR HANGER IRRIGATION 05/12/17 17:15 05/19/17 17:14 Cefazolin Sodium 500 mg/Sodium Chloride 505 ml @ 0 mls/hr DOOR HANGER IRRIGATION 05/12/17 17:15 05/19/17 17:14 Cefazolin Sodium/ Dextrose 50 ml @ 150 mls/hr DOOR HANGER IV 05/12/17 17:15 05/19/17 17:14 (Lopressor) 12.5 mg DOOR HANGER PO 05/13/17 05:00 05/19/17 04:59 (Hibiclens 4% Top Soln) 1 applic DOOR HANGER TOPICAL 05/12/17 17:15 05/19/17 17:14 Insulin Human Regular 100 units/ Sodium Chloride 100 ml @ 3 mls/hr TITRATE PRN IV 05/12/17 17:15 05/19/17 17:14 (D50w (Vial) Inj) 50 ml UNSCH PRN IV PUSH 05/12/17 17:15 A/P Problem List: (1) Non-STEMI (non-ST elevated myocardial infarction) ICD Code: I21.4 - Non-ST elevation (NSTEMI) myocardial infarction Status: Acute (2) Pneumonia ICD Code: J18.9 - Pneumonia, unspecified organism (3) Congestive heart failure ICD Code: I50.9 - Heart failure, unspecified Status: Acute (4) Tobacco abuse ICD Code: Z72.0 - Tobacco use Assessment and Plan Mr. Castillo is a pleasant 66-year-old male with a history of tobacco abuse who presents to the emergency department today due to chest pain that has been going on for one and half weeks. He complains of substernal chest pressure radiating to his jaws, occasional diaphoresis and substernal burning sensation. He also reports shortness of breath especially lying down flat. - Non-ST elevation myocardial infarction - Patient presents with typical symptoms consistent with acute coronary syndrome. - Troponin 10.7. - EKG shows no acute ST changes. - Continue aspirin 81 mg daily, statin - Nitroglycerin for chest pain, metoprolol 25 mg twice a day. - Continue heparin drip. - 05/13 the patient status post cardiac catheterization with findings of multivessel CAD. CT surgery consulted and recommended CABG. The patient's for CABG in a.m. Keep nothing by mouth at midnight. - Acute Congestive heart failure likely systolic - BNP 946. Chest x-ray not very significant for fluid overload. No leg swelling. - Continue Lasix 20 mg IV twice a day. - Continue metoprolol. If patient experiences any worsening of his symptoms , discontinue beta julissa. -2-D echocardiogram showed a severely reduced ventricle systolic function with an estimated EF of 30-35%. Concentric left ventricular hypertrophy. Mild mitral valve regurgitation. Trace tricuspid valve regurgitation. - 05/13 Continue IV lasix and medications as above. - Possible pneumonia - Chest x-ray reviewed by me. Community-acquired pneumonia versus aspiration pneumonia. WBC is slightly elevated to 11.2. - Continue moxifloxacin 400 mg by mouth every 24 hours. This will cover both community acquired pneumonia and aspiration pneumonia. - acute kidney injury - Creatinine 1.40. We do not know patient's baseline creatinine. - Avoid nephrotoxins. - 05/13 Creatinine slightly elevated at 1.48. Continue to monitor BUN and creatinine. - Tobacco abuse - patient is counseled regarding tobacco cessation. Full code. Heparin drip. Discharge Planning for CABG in am. Problem Qualifiers (1) Congestive heart failure: Qualified Codes: I50.9 - Heart failure, unspecified Anatoly Galvez MD May 13, 2017 19:21
[2017-05-13] MEDS: ATORVASTATIN 40 MG TAB PO SCH (21:15)
[2017-05-13 21:32] LABS: APTT (PATIENT) 40.4 SEC (24.3-30.1)
[2017-05-14] VITALS (27 sets, daily range): BP systolic 93–138; BP diastolic 56–83; PULSE 66–93; RESP 12–18; TEMP 97.4–98.4; O2SAT 90–97
[2017-05-14] MEDS ORDERED: LACTATED RINGER'S 1000 ML IV PRN (01:30)
[2017-05-14] MEDS ORDERED: CHLORHEXIDINE GLUCONATE 2 % 1 PACK (2 CLOTHS) TOPICAL PRN (01:30)
[2017-05-14] MEDS ORDERED: POVIDONE IODINE 5% (ANTISEPSIS KIT) 4 APPLICATIONS EACH NARE PRN (01:30)
[2017-05-14] MEDS ORDERED: INSULIN HUMAN REGULAR 1,000 UNITS/10 ML VIAL SQ PRN (01:30)
[2017-05-14] MEDS ORDERED: SODIUM CHLORID 0.9% 500 ML IV PRN (01:30)
[2017-05-14] MEDS: METOPROLOL TARTRATE 25 MG TAB PO SCH (05:57)
[2017-05-14] MEDS ORDERED: VANCOMYCIN HCL 1000 MG VIAL ONE (06:24)
[2017-05-14] MEDS ORDERED: methylPREDNISolone SOD SUCC 125 MG/2 ML VIAL ONE (06:24)
[2017-05-14] MEDS ORDERED: HEPARIN SODIUM - SQ 10,000 UNITS/ML VIAL ONE (06:24)
[2017-05-14] MEDS ORDERED: ceFAZolin 2 GM PREMIX 50 ML ONE (06:24)
[2017-05-14] MEDS ORDERED: MIDAZOLAM HCL 5 MG/5 ML VIAL ONE (06:51)
[2017-05-14] MEDS ORDERED: fentaNYL CITRATE 1000 MCG/20 ML VIAL ONE (06:51)
[2017-05-14] MEDS ORDERED: CARDIOPLEGIC IRR 2,000 ML ONE (07:10)
[2017-05-14] MEDS ORDERED: MANNITOL ONE (07:11)
[2017-05-14] MEDS ORDERED: POTASSIUM CHLORIDE 20 MEQ/10 ML VIAL ONE (07:11)
[2017-05-14] MEDS ORDERED: CALCIUM CHLORIDE 10% SOLN 1 GRAM/10 ML SYR ONE (07:12)
[2017-05-14] MEDS ORDERED: HEPARIN SODIUM - IV 10,000 UNITS/10 ML VIAL ONE (07:12)
[2017-05-14] MEDS ORDERED: SODIUM BICARBONATE 8.4% INJ 50 ML ONE (07:12)
[2017-05-14] MEDS ORDERED: ALBUMIN 25% INJ 50 ML IV ONE (07:13)
[2017-05-14] MEDS: FUROSEMIDE 20 MG/2 ML VIAL IV PUSH SCH (09:00)
[2017-05-14] MEDS: ASPIRIN EC 81 MG TABEC PO SCH (09:00)
[2017-05-14] MEDS: SODIUM CHLORIDE 0.9% FLUSH 10 ML FLUSH IV FLUSH SCH ×3 (09:00→21:00)
[2017-05-14] MEDS ORDERED: DEXMEDETOMIDINE HCL 200 MCG/2 ML VIAL ONE (09:11)
[2017-05-14] MEDS ORDERED: ACETAMINOPHEN 1000 MG/100 ML 100 ML IV ONE (09:11)
[2017-05-14] MEDS ORDERED: SUGAMMADEX SODIUM 200 MG/2 ML VIAL IV PUSH ONE ×2 (09:12)
[2017-05-14] MEDS ORDERED: LACTATED RINGER'S 1000 ML INJ 500 ML IV PRN (10:53)
[2017-05-14] MEDS ORDERED: ACETAMINOPHEN 650 MG SUPP RECTAL PRN (11:00)
[2017-05-14] MEDS ORDERED: ONDANSETRON HCL 4 MG/2 ML VIAL IV PUSH PRN (11:00)
[2017-05-14] MEDS ORDERED: METOPROLOL TARTRATE 5 MG/5 ML VIAL IV PUSH PRN (11:00)
[2017-05-14] MEDS ORDERED: ALBUMIN 5% INJ 250 ML IV PRN (11:00)
[2017-05-14] MEDS ORDERED: Post-op Orders (for Pharmacy) OTHER ONE (11:00)
[2017-05-14] MEDS ORDERED: SODIUM BICARBONATE 8.4% SOLN 50 MEQ/50 ML VIAL IV PUSH PRN ×2 (11:00)
[2017-05-14] MEDS ORDERED: POTASSIUM CHLOR 20 MEQ PREMIX 100 ML IV PRN ×3 (11:00)
[2017-05-14] MEDS ORDERED: DEXTROSE 50% IN WATER 50 ML VIAL(D50) IV PUSH PRN (11:00)
[2017-05-14] MEDS ORDERED: hydrALAZINE HCL 20 MG/ML VIAL IV PUSH PRN (11:00)
[2017-05-14] MEDS ORDERED: CLEVIDIPINE INJ 50 ML IV PRN (11:00)
[2017-05-14] MEDS ORDERED: ACETAMINOPHEN 325 MG TAB PO PRN (11:00)
[2017-05-14] MEDS ORDERED: CALCIUM CHLORIDE INJ 1 GM in SODIUM CHLORIDE 0.9% INJ 100 ML IV PRN ×2 (11:00→18:45)
[2017-05-14] MEDS ORDERED: INSULIN REGULAR (IV INFUSION) 100 UNITS in SODIUM CHLORIDE 0.9% INJ 99 ML IV PRN (11:00)
[2017-05-14] MEDS ORDERED: MAGNESIUM SULFATE INJ 2 GM in SODIUM CHLORIDE 0.9% INJ 100 ML IV PRN ×4 (11:00)
[2017-05-14] MEDS ORDERED: SODIUM CHLORIDE 0.9% FLUSH 10 ML FLUSH IV FLUSH PRN (11:00)
[2017-05-14] MEDS ORDERED: POTASSIUM CHLORIDE 20 MEQ CONTROLLED RELEASE TAB PO PRN ×2 (11:00)
[2017-05-14] MEDS ORDERED: RESP: ALBUTEROL 2.5 MG/IPRATROPIUM 0.5 MG NEB (PRN) NEB ×2 (11:00→13:00)
[2017-05-14] MEDS ORDERED: CALCIUM CHLORIDE 10% 1 GRAM/10 ML VIAL IV PUSH PRN (11:00)
[2017-05-14] MEDS ORDERED: RESP: RACEPINEPHRINE 2.25% 0.5 ML NEB NEB PRN ×2 (11:00→13:00)
--- NOTE | 2017-05-14 11:04 | PD.OP ---
cc: Gracie Donovan MD; Lebron Hightower DO Operative Report Date of Surgery: May 14, 2017 Preoperative Diagnosis: (1) Non-STEMI (non-ST elevated myocardial infarction) (2) Congestive heart failure (3) Multi-vessel coronary artery stenosis Postoperative Diagnosis: same Procedure: Urgent CABG x 2 PEREZ to LAD - good SVG to OM - good EVH Anesthesia: Dr. Quiñonez Surgeon: Gracie Donovan [employer] C[employer] Developer(s): Sapna Temple, YOLIS Operation and Findings: The risks, benefits, complications, treatment options, and expected outcomes were discussed with the patient. The possibilities of reaction to medication, pulmonary aspiration, perforation of viscus, bleeding, recurrent infection, the need for additional procedures, failure to diagnose a condition, and creating a complication requiring transfusion or operation were discussed with the patient. The patient concurred with the proposed plan, giving informed consent. The site of surgery properly noted/marked. The patient was taken to Operating Room, identified as Andre Castillo and the procedure verified as CABG, EVH. A Time Out was held and the above information confirmed. Standard monitoring lines and Shanks catheter were placed. General anesthesia was induced. The patient was prepped and draped in a sterile fashion. A median sternotomy was performed and electrocautery was used to obtain hemostasis. The left internal mammary artery was procured as a pedicle from the 7th rib to the 1st rib in the usual manner. Simultaneously left greater saphenous vein was procured from the left leg using a minimally invasive endoscopic technique. The vein was prepared for anastomosis and the leg wound was irrigated and closed in 2 layers. The pericardium was opened and a pericardial sling was created using interrupted 0 silk sutures. The patient was heparinized for cardiopulmonary bypass and the distal mammary pedicle was instrumented for anastomosis. The heart was instrumented for cardiopulmonary bypass in the usual manner. Antegrade blood cardioplegia was employed. The patient was placed on cardiopulmonary bypass. An aortic cross-clamp was applied and the heart was arrested using cold blood cardioplegia. Antegrade cardioplegia was administered after he each anastomosis. After adequate arrest, the distal right coronary circulation was investigated and the PDA was too small to graft. The 1st circumflex marginal artery was then opened with a [place] blade and found to be a 1.5 millimeter good target. The OM1 artery was intramyocardial. Saphenous vein was approximated to the OM1 artery using a running 7 0 Prolene suture. The graft was measured for length and orientation and was suspended from the pericardium. The distal LAD was opened with a [place] blade and found to be a 1.5 millimeter good target. The left internal mammary artery was approximated to the LAD using a running 7 0 Prolene suture. The pedicle was attached to the epicardium using interrupted 5 0 silk suture. The patient was systemically rewarmed and received a hotshot dose of warm blood cardioplegia. The aorta was vented and the proximal anastomosis to the OM1 graft was accomplished using a running 5 0 Prolene suture after creating an aortotomy was a 5 millimeter punch. The cross-clamp was removed and all proximal and distal anastomoses were examined for hemostasis. The patient was weaned from cardiopulmonary bypass. Protamine was given. There was no adverse reaction. Decannulation was carried out without incident. Wound was checked for hemostasis which was obtained using electrocautery. A 36 Telugu mediastinal and 32 Telugu left pleural chest was were placed and secured to the skin with 0 silk suture. The sternum was closed with stainless steel wire. The fascia was closed with 1. PDS. The subcutaneous tissue was closed using a running 2-0 Vicryl suture. The skin was closed with 4- 0 Monocryl. Sterile dressings were placed. At the end of the operation, all sponge, instruments, and needle counts were correct. The patient was transferred to the CVICU in stable condition. Findings: good distal targets. EF about 35% after revascularization XC: 32 min CPB: 52 min Drains: mediastinal x 1 pleural x 1"} Complications: none Disposition: to CVICU in stable condition Gracie Donovan MD May 14, 2017 11:04
[2017-05-14] MEDS: INSULIN REGULAR (IV INFUSION) 100 UNITS in SODIUM CHLORIDE 0.9% INJ 99 ML IV PRN ×2 (11:48→18:01)
[2017-05-14] MEDS ORDERED: NS 100 ML (PAB BAG) 200 ML IV ONE (12:00)
[2017-05-14] MEDS ORDERED: AMIODARONE HCL 150 MG/3 ML VIAL IV ONE (12:00)
[2017-05-14] MEDS ORDERED: NITROGLYCERIN 50 MG/DEXTROSE 5% SOLN 250 ML BTL IV ONE (12:00)
[2017-05-14] MEDS ORDERED: NORMOSOL R INJ 2,000 ML IV ONE (12:00)
[2017-05-14] MEDS ORDERED: MAGNESIUM SULFATE 1 GM/2 ML VIAL IV ONE (12:00)
[2017-05-14] MEDS ORDERED: HEPARIN SODIUM - SQ 10,000 UNITS/ML VIAL OTHER ONE (12:00)
[2017-05-14] MEDS ORDERED: TRANEXAMIC ACID INJ 1,000 MG/10 ML AMP IV ONE (12:00)
[2017-05-14] MEDS ORDERED: LIDOCAINE HCL 1% PF 5 ML AMPULE OTHER ONE (12:00)
[2017-05-14] MEDS ORDERED: PROTAMINE SULFATE 250 MG/25 ML VIAL IV ONE (12:00)
[2017-05-14] MEDS ORDERED: NOREPINEPHRINE 4 MG/4 ML AMP IV ONE (12:00)
[2017-05-14] MEDS ORDERED: VECURONIUM BROMIDE 10 MG VIAL IV ONE (12:00)
[2017-05-14] MEDS ORDERED: LACTATED RINGER'S 1000 ML INJ 3,000 ML IV ONE (12:00)
[2017-05-14] MEDS ORDERED: SODIUM CHLORID 0.9% 500 ML INJ 500 ML IV ONE (12:00)
[2017-05-14] MEDS ORDERED: PHENYLEPHRINE HCL 10 MG/ML VIAL IV ONE (12:00)
[2017-05-14] MEDS ORDERED: EPINEPHrine HCL (1:1000) 1 MG/ML VIAL IV ONE (12:00)
[2017-05-14] MEDS ORDERED: PHENYLEPH/NS 1000 MCG/10 ML SYR IV ONE (12:00)
[2017-05-14] MEDS ORDERED: ePHEDrine/NS 25 MG/5 ML SYRINGE IV ONE (12:00)
[2017-05-14] MEDS ORDERED: SODIUM CHLOR 0.9% 250 ML INJ 750 ML IV ONE (12:00)
--- NOTE | 2017-05-14 12:16 | PD.CARD.PN ---
Subjective Subjective Remarks Post-CABG Stable, difficult oxygenation otherwise no problems Objective Medications Current Medications Medications (Trade) Dose Ordered Sig/Dayami Route Start Time Stop Time Status Last Admin (Lipitor) 80 mg HS PO 05/13/17 21:00 05/13/17 21:15 (Tylenol) 650 mg Q4H PRN PO 05/12/17 09:45 (Narcan Inj) 0.4 mg UNSCH PRN IV PUSH 05/12/17 09:45 (Milk Of Magnesia Liq) 30 ml Q12H PRN PO 05/12/17 09:45 (Senokot) 17.2 mg Q12H PRN PO 05/12/17 09:45 (Dulcolax Supp) 10 mg DAILY PRN RECTAL 05/12/17 09:45 (Lactulose Liq) 30 ml DAILY PRN PO 05/12/17 09:45 (Ecotrin Ec) 81 mg DAILY PO 05/13/17 09:00 05/13/17 10:02 Papaverine HCl 60 mg/Nitroglycerin 100 mcg/Diltiazem HCl 100 mg/Sodium Chloride 100 ml @ 0 mls/hr CONSTRUCTION CONSULTANT IRRIGATION 05/12/17 17:15 05/19/17 17:14 05/14/17 08:54 Cefazolin Sodium 500 mg/Sodium Chloride 505 ml @ 0 mls/hr CONSTRUCTION CONSULTANT IRRIGATION 05/12/17 17:15 05/19/17 17:14 05/14/17 08:53 Cefazolin Sodium/ Dextrose 50 ml @ 150 mls/hr CONSTRUCTION CONSULTANT IV 05/12/17 17:15 05/19/17 17:14 05/14/17 08:05 (Lopressor) 12.5 mg CONSTRUCTION CONSULTANT PO 05/13/17 05:00 05/19/17 04:59 (Hibiclens 4% Top Soln) 1 applic CONSTRUCTION CONSULTANT TOPICAL 05/12/17 17:15 05/19/17 17:14 Sodium Chloride 500 ml @ 30 mls/hr [id number] PRN IV 05/14/17 01:30 05/17/17 01:29 (Betadine 5% Antisepsis Kit) 1 applic CONSTRUCTION CONSULTANT PRN EACH NARE 05/14/17 01:30 05/17/17 01:29 (Chlorhexidine 2% Cloth) 3 pack CONSTRUCTION CONSULTANT PRN TOPICAL 05/14/17 01:30 05/17/17 01:29 (NovoLIN R INJ) See Protocol Table ... CONSTRUCTION CONSULTANT PRN SQ 05/14/17 01:30 05/17/17 01:29 (NS Flush) 2 ml BID IV FLUSH 05/14/17 21:00 (NS Flush) 2 ml UNSCH PRN IV FLUSH 05/14/17 11:00 Dexmedetomidine HCl 200 mcg/ Sodium Chloride 52 ml @ 5.02 mls/hr TITRATE PRN IV 05/14/17 11:00 UNV Clevidipine 50 ml @ 2 mls/hr TITRATE PRN IV 05/14/17 11:00 Albumin Human 250 ml @ 250 mls/hr UNSCH PRN IV 05/14/17 11:00 Lactated Ringer's 500 ml @ 500 mls/hr Q1H PRN IV 05/14/17 10:53 Cefazolin Sodium 1000 mg/Sodium Chloride 100 ml @ 200 mls/hr Q8H IV 05/14/17 16:00 05/16/17 00:29 (Protonix) 40 mg DAILY@06 PO 05/15/17 06:00 (Reglan Inj) 10 mg ACHS IV PUSH 05/14/17 12:00 (Cordarone) 400 mg Q8HR PO 05/14/17 14:00 (Tylenol Supp) 650 mg Q4H PRN RECTAL 05/14/17 11:00 Acetaminophen 100 ml @ 400 mls/hr Q6H IV 05/14/17 12:00 05/15/17 06:14 (Percocet 5-325 Mg) 1 tab Q3H PRN PO 05/14/17 11:00 (Toradol Inj) 15 mg Q6H PRN IV PUSH 05/14/17 11:00 05/16/17 10:59 (fentaNYL INJ) 25 mcg Q1H PRN IV PUSH 05/14/17 11:00 (Zofran Inj) 4 mg Q6H PRN IV PUSH 05/14/17 11:00 (Apresoline Inj) 10 mg Q4H PRN IV PUSH 05/14/17 11:00 (Lopressor Inj) 2.5 mg Q1H PRN IV PUSH 05/14/17 11:00 Potassium Chloride 100 ml @ 50 mls/hr UNSCH PRN IV 05/14/17 11:00 Potassium Chloride 100 ml @ 50 mls/hr UNSCH PRN IV 05/14/17 11:00 Potassium Chloride 100 ml @ 50 mls/hr UNSCH PRN IV 05/14/17 11:00 (KCl) 20 meq UNSCH PRN PO 05/14/17 11:00 (KCl) 40 meq UNSCH PRN PO 05/14/17 11:00 Magnesium Sulfate 2 gm/Sodium Chloride 104 ml @ 100 mls/hr UNSCH PRN IV 05/14/17 11:00 Magnesium Sulfate 2 gm/Sodium Chloride 104 ml @ 50 mls/hr UNSCH PRN IV 05/14/17 11:00 Calcium Chloride 1 gm/Sodium Chloride 110 ml @ 100 mls/hr UNSCH PRN IV 05/14/17 11:00 (Calcium Chloride Inj) 0.5 gm UNSCH PRN IV PUSH 05/14/17 11:00 Insulin Human Regular 100 units/ Sodium Chloride 100 ml @ 3 mls/hr TITRATE PRN IV 05/14/17 11:00 (D50w (Vial) Inj) 50 ml UNSCH PRN IV PUSH 05/14/17 11:00 (Sodium Bicarbonate 8.4% Inj) 50 meq UNSCH PRN IV PUSH 05/14/17 11:00 (Sodium Bicarbonate 8.4% Inj) 100 meq UNSCH PRN IV PUSH 05/14/17 11:00 (Duoneb Neb) 1 ampule Q6HR NEB NEB 05/14/17 16:00 (Duoneb Neb) 1 ampule Q2HR NEB PRN NEB 05/14/17 11:00 (Racepinephrine 2.25% Neb) 0.5 ml UNSCH X1 PRN NEB 05/14/17 11:00 05/24/17 10:59 Vital Signs / I&O Vital Signs Date Time Temp Pulse Resp B/P (MAP) Pulse Ox O2 Delivery O2 Flow Rate FiO2 05/14/17 12:12 98 90 05/14/17 12:11 100 05/14/17 11:58 97.4 76 12 93/56 (68) 92 05/14/17 11:57 76 05/14/17 06:00 68 05/14/17 05:00 74 05/14/17 04:00 69 05/14/17 03:00 70 05/14/17 03:00 98.4 69 123/80 (94) 96 12/21/17 02:00 66 05/14/17 01:00 66 05/14/17 00:32 97.8 67 95/58 (70) 97 05/14/17 00:00 66 05/13/17 23:00 75 05/13/17 22:00 76 05/13/17 21:00 74 05/13/17 20:00 98.6 76 118/66 (83) 94 05/13/17 20:00 72 05/13/17 19:37 21 05/13/17 19:00 74 05/13/17 18:00 60 05/13/17 17:00 72 05/13/17 16:00 70 05/13/17 15:03 60 20 103/62 (76) 96 05/13/17 15:00 70 05/13/17 14:00 78 05/13/17 13:00 73 05/13/17 12:30 70 20 106/68 (81) 96 I/O 05/13/17 05/13/17 05/13/17 05/14/17 05/14/17 05/14/17 07:00 15:00 23:00 07:00 15:00 23:00 Intake Total 240 ml 1048 ml 240 ml Output Total 1125 ml 400 ml Balance -885 ml 1048 ml -160 ml Intake Oral 240 ml 920 ml 240 ml IV Total 128 ml Output Urine Total 1125 ml 400 ml # Voids 5 Physical Exam GENERAL: Intubated and sedated SKIN: Warm and dry. HEAD: Atraumatic. Normocephalic. EYES: Pupils equal and round. No scleral icterus. No injection or drainage. ENT: No nasal bleeding or discharge. Mucous membranes pink and moist. NECK: Trachea midline. No JVD. CARDIOVASCULAR: Regular rate and rhythm. RESPIRATORY: No accessory muscle use. Decreased breath sounds bilaterally GASTROINTESTINAL: Abdomen soft, non-tender, nondistended. Hepatic and splenic margins not palpable. MUSCULOSKELETAL: Extremities without clubbing, cyanosis, or edema. No obvious deformities. Right radial no hematoma, neurovascularly intact distally NEUROLOGICAL: Intubated and sedated Laboratory Laboratory Tests Test 05/13/17 13:50 05/13/17 21:05 Activated Partial Thromboplast Time 44.1 SEC 40.4 SEC Assessment and Plan Problem List: (1) Multi-vessel coronary artery stenosis ICD Codes: I25.10 - Atherosclerotic heart disease of [place] coronary artery without angina pectoris (2) Non-STEMI (non-ST elevated myocardial infarction) ICD Codes: I21.4 - Non-ST elevation (NSTEMI) myocardial infarction Status: Acute (3) Tobacco abuse ICD Codes: Z72.0 - Tobacco use (4) Congestive heart failure ICD Codes: I50.9 - Heart failure, unspecified Status: Acute (5) FRANK (acute kidney injury) ICD Codes: N17.9 - Acute kidney failure, unspecified (6) Pneumonia ICD Codes: J18.9 - Pneumonia, unspecified organism Assessment and Plan 1) MVCAD/NSTEMI s/p CABGx2 POD #0 PEREZ to LAD SVG to OM 2) Acute systolic heart failure, EF 30-35% 3) Vent per CT surgery/Critical care 4) ASA/Amio/Statin Problem Qualifiers (1) Congestive heart failure: Qualified Codes: I50.9 - Heart failure, unspecified Lebron Hightower DO May 14, 2017 12:16
--- NOTE | 2017-05-14 12:21 | RADRPT ---
EXAM DATE/TIME: 05/14/2017 11:46 [facility] COMPARISON: CHEST SINGLE AP, May 12, 2017, 8:31. INDICATIONS : Post op CABG MEDICAL HISTORY : None. SURGICAL HISTORY : CABG. ENCOUNTER: Subsequent ACUITY: 2 days PAIN SCORE: Non-responsive. LOCATION: Bilateral chest FINDINGS: Endotracheal tube tip in satisfactory position. NG enters stomach. Central and left chest tubes. Righ t central line in superior vena cava. Basilar airspace disease. No significant effusion. No pneumotho rax. CONCLUSION: 1. Basilar airspace disease, probable dependent atelectasis with trace pleural fluid. Support apparat us in good position. Joel Collazo MD on May 14, 2017 at 12:17 Board Certified Radiologist. This report was verified electronically.
[2017-05-14] MEDS: ACETAMINOPHEN 1000 MG/100 ML 100 ML IV SCH ×3 (12:25→23:42)
[2017-05-14] MEDS: METOCLOPRAMIDE HCL 10 MG/2 ML VIAL IV PUSH SCH ×3 (12:25→19:56)
[2017-05-14] MEDS: AMIODARONE 200 MG TAB PO SCH ×2 (13:44→22:00)
--- NOTE | 2017-05-14 14:21 | HHI.FF ---
Face to Face Verification Diagnosis: (1) Congestive heart failure (2) Non-STEMI (non-ST elevated myocardial infarction) (3) Tobacco abuse (4) Multi-vessel coronary artery stenosis (5) FRANK (acute kidney injury) (6) S/P CABG x 2 Physical Therapy Order: Evaluate and Treat Home Health Nursing Order: Signs/symptoms of disease process CHF education Medication education-adverse effect Wound care and dressing changes Nursing assessment with vital signs Instructions: Heart and Vascular Surgery patients *Special attention to sternal dressing Mandatory frequency Assess and evaluation, 4 days in a row The next week 3X week 2 times a week for 4 weeks 1 time a week for 5 weeks Schedule Heart and Vascular patients for full 60 day certification period Initial visit Review Open Heart Surgery Discharge Instructions (Sternal precautions, Activity, Elastic hose, Incision care, Driving, Incentive spirometry, Smoking, [place], Work and other) Need Betadine to paint incision Medication reconciliation Importance of follow up care/ check on appointments Make calendar record temperature daily When to call [facility] nurse, review instructions, phone list Incentive Spirometry, demonstration Visit 1- Begin discharge instruction for patient family and/ or caregiver using teach back method- Signs and symptoms of infection Disease characteristics Medicines and side effects Foods and nutrition/ appetite Infection control/ hand washing/ hygiene Visit 2- Continue teaching Discharge instructions- include additional information on smoking cessation , sternal dressing (sternal vac) Visit 3- Continue teaching- Cough and deep breathing, incision monitoring. Choose my plate Visit 4- Continue teaching- Discuss limitations Discuss how they are feeling Discuss progress toward goals Remaining visits- continue teaching and monitoring For any questions please call : PREVENA Single Use Negative Wound Therapy System Caregiver Instruction Sheet 1. A Prevena dressing system was applied to the chest incision during surgery , to promote wound healing. It works via a suction device (negative pressure wound therapy) to remove low to moderate levels of exudate (drainage) and infectious materials. We recommend that the device stay in place for up to seven days, from day of surgery. 2. Day of Surgery_05/13/17 Day of Removal __05/20/17 3. The dressing should only be removed by a health director critical care. Please arrange removal of device to coincide with Home Health visit and or with Nursing staff at Rehab 4. If skin reddening or irritation of skin occurs, or excessive drainage, please notify the Cardiovascular Surgeons office at [phone]. 5. Light showering is permissible; however the pump should be disconnected and placed in safe location, where it will not get wet. The dressing should not be exposed to direct spray or submerged in water. No bath tub / shower only. Ensure the end of the tubing attached to the dressing is facing down so that water does not enter the top of the tube. 6. To remove Prevena dressing: press purple button to turn off device / remove the suction. Then disconnect the tubing from the pump. The fixation strips should be stretched away from the skin and the dressing lifted at one corner and peeled back until it has been fully removed. 7. After removal, it is ok to shower daily using liquid dial soap and clean wash cloth, rinse and pat dry, and leave incision open to air dry. For any concerns regarding Prevena dressing, and or wounds, please contact Mari Rivas, patient navigator at [phone] or notify the Cardiovascular Surgeons office at [phone]. Incentive spirometry Q1 hr x 10, while awake, also use acapella device hourly whole awake Sternal Breast Bone Precautions: NO pushing or pulling, ( pt must use sternal pillow to support chest with all activities and with coughing ( takes up to 3 months breast bone to heal ) Daily incision care: ok to shower daily, no tub bath. Wash all incisions with liquid dial soap, clean wash cloth to each site, rinse and pat dry. Observe for any signs of infection, such as drainage which is dark yellow, renner, green or foul smelling. Immediately report to the surgeon any drainage from the chest incision, or legs, and for any abnormal drainage from the chest tube sites. Notify surgeon if any temp >101.5 degrees F. When specialty dressing removed/ or if you do not have one, continue to shower daily as above, then rinse and pat incision dry and paint with betadine daily x 5 days. Allow steri strips to fall off if you have any. Avoid lotions, creams, salves, oils, etc. for the first month Please see attached forms for additional instructions regarding post Open Heart specialty wound vacuum dressings. EL or Prevena , Dressing to be removed by Nursing staff on __05/20/[address] Donovan patients , please obtain CBC, BMP, PA & Lat CXR in 2 weeks, results to Dr. Donovan ( prescription will be given) ( ) (Tele: [phone]) , F/U appointment: as per MS instructions: PCP in 2 weeks, CV surgeon 2 weeks, Bakery Associate 3-4 weeks For any questions regarding incisions/ dressing / meds / post op care or above Symptoms, Thursday 8am-5pm Heart & Vascular Surgery Office ( Dr. Morris & Dr. Donovan), After Hours / Nights (5pm -8am) Weekends and Holidays Please call [facility] Card[facility] ([facility]) Charge Nurse I have seen patient Andre Castillo on 05/14/17. My clinical findings support the need for the requested home health care services because: Deconditioned w/ increased weakness I certify that my clinical findings support that this patient is homebound because: Post-op weakness Annalise Shelley May 14, 2017 14:21
[2017-05-14] MEDS ORDERED: DEXMEDETOMIDINE INJ 200 MCG in SODIUM CHLORIDE 0.9% INJ 50 ML IV PRN (15:00)
[2017-05-14] MEDS: RESP: ALBUTEROL 2.5 MG/IPRATROPIUM 0.5 MG NEB (SCH) NEB ×4 (15:57→19:27)
[2017-05-14] MEDS: KETOROLAC TROMETHAMINE 30 MG/ML (IVP) VIAL IV PUSH PRN (16:15)
--- NOTE | 2017-05-14 19:04 | HHI.PR ---
Subjective Remarks Patint is sp CABG states has some pain on chest which is controlled. Objective Vitals Vital Signs Date Time Temp Pulse Resp B/P (MAP) Pulse Ox O2 Delivery O2 Flow Rate FiO2 05/14/17 18:05 98.1 05/14/17 18:04 85 05/14/17 18:04 17 05/14/17 17:02 18 05/14/17 17:01 87 05/14/17 16:02 74 05/14/17 16:02 93 Nasal Cannula 5.00 05/14/17 15:22 97.5 05/14/17 15:17 97.5 78 16 136/73 (94) 92 05/14/17 15:16 79 05/14/17 14:01 76 05/14/17 13:36 92 Nasal Cannula 5.00 05/14/17 13:35 78 05/14/17 13:20 91 Nasal Cannula 4 05/14/17 12:28 97.4 05/14/17 12:13 76 05/14/17 12:12 98 90 05/14/17 12:11 100 05/14/17 11:58 97.4 76 12 93/56 (68) 92 05/14/17 11:57 76 05/14/17 11:45 90 100 05/14/17 06:00 68 05/14/17 05:00 74 05/14/17 04:00 69 05/14/17 03:00 70 05/14/17 03:00 98.4 69 123/80 (94) 96 05/14/17 02:00 66 05/14/17 01:00 66 05/14/17 00:32 97.8 67 95/58 (70) 97 05/14/17 00:00 66 05/13/17 23:00 75 05/13/17 22:00 76 05/13/17 21:00 74 05/13/17 20:00 98.6 76 118/66 (83) 94 05/13/17 20:00 72 05/13/17 19:37 21 I/O 05/13/17 05/13/17 05/13/17 05/14/17 05/14/17 05/14/17 07:00 15:00 23:00 07:00 15:00 23:00 Intake Total 240 ml 1048 ml 240 ml 210 ml 1400 ml Output Total 1125 ml 400 ml 1120 ml Balance -885 ml 1048 ml -160 ml 210 ml 280 ml Intake Oral 240 ml 920 ml 240 ml 100 ml IV Total 128 ml 210 ml 1300 ml Output Urine Total 1125 ml 400 ml 820 ml Chest Tube Drainage Total 300 ml # Voids 5 # Bowel Movements 0 Result Diagram: 05/13/17 0548 05/13/17 0542 Objective Remarks AAOx3 NAD PERRLA Clear lungs BL - no wheezing or rhonchi, sternal wound is covered by dressing. chest tubes in place Soft, non tender abdomen No edema in lower extremities A/P Problem List: (1) Non-STEMI (non-ST elevated myocardial infarction) ICD Code: I21.4 - Non-ST elevation (NSTEMI) myocardial infarction Status: Acute (2) Pneumonia ICD Code: J18.9 - Pneumonia, unspecified organism (3) Congestive heart failure ICD Code: I50.9 - Heart failure, unspecified Status: Acute (4) Tobacco abuse ICD Code: Z72.0 - Tobacco use Assessment and Plan Mr. Castillo is a pleasant 66-year-old male with a history of tobacco abuse who presents to the emergency department today due to chest pain that has been going on for one and half weeks. He complains of substernal chest pressure radiating to his jaws, occasional diaphoresis and substernal burning sensation. He also reports shortness of breath especially lying down flat. - Non-ST elevation myocardial infarction - Patient presents with typical symptoms consistent with acute coronary syndrome. - Troponin 10.7. - EKG shows no acute ST changes. - Continue aspirin 81 mg daily, statin - Nitroglycerin for chest pain, metoprolol 25 mg twice a day. - Continue heparin drip. - 05/13 the patient status post cardiac catheterization with findings of multivessel CAD. CT surgery consulted and recommended CABG. The patient's for CABG in a.m. Keep nothing by mouth at midnight. - 05/14 SP CABG - management as per CT surgery. - Acute Congestive heart failure likely systolic - BNP 946. Chest x-ray not very significant for fluid overload. No leg swelling. - Continue Lasix 20 mg IV twice a day. - Continue metoprolol. If patient experiences any worsening of his symptoms , discontinue beta julissa. -2-D echocardiogram showed a severely reduced ventricle systolic function with an estimated EF of 30-35%. Concentric left ventricular hypertrophy. Mild mitral valve regurgitation. Trace tricuspid valve regurgitation. - 05/13 Continue IV lasix and medications as above. - Possible pneumonia - Chest x-ray reviewed by me. Community-acquired pneumonia versus aspiration pneumonia. WBC is slightly elevated to 11.2. - Continue moxifloxacin 400 mg by mouth every 24 hours. This will cover both community acquired pneumonia and aspiration pneumonia. - acute kidney injury - Creatinine 1.40. We do not know patient's baseline creatinine. - Avoid nephrotoxins. - 05/13 Creatinine slightly elevated at 1.48. Continue to monitor BUN and creatinine. - Tobacco abuse - patient is counseled regarding tobacco cessation. Full code. Heparin drip. Discharge Planning for CABG in am. Problem Qualifiers (1) Congestive heart failure: Qualified Codes: I50.9 - Heart failure, unspecified Anatoly Galvez MD May 14, 2017 19:04
[2017-05-14] MEDS: ATORVASTATIN 40 MG TAB PO SCH (19:56)
[2017-05-15] VITALS (19 sets, daily range): BP systolic 100–140; BP diastolic 71–91; PULSE 83–106; RESP 16–21; TEMP 97.9–98.8; O2SAT 91–100
[2017-05-15 02:41] LABS: HEMATOCRIT 37.2 % (39.0-51.0); MEAN CELL VOLUME 95.1 FL (80.0-100.0); MEAN CORPUSCULAR HEMOGLOBIN 32.5 PG (27.0-34.0); MEAN CORPUSCULAR HGB CONC 34.1 % (32.0-36.0); PLATELET COUNT 152 TH/MM3 (150-450); RED BLOOD COUNT 3.91 MIL/MM3 (4.50-5.90); RED CELL DISTRIBUTION WIDTH 14.1 % (11.6-17.2); REVIEW FLAG FINAL; WHITE BLOOD COUNT 17.2 TH/MM3 (4.0-11.0)
[2017-05-15 02:53] LABS: MAGNESIUM 2.4 MG/DL (1.5-2.5); POTASSIUM 4.8 MEQ/L (3.5-5.1)
[2017-05-15] MEDS: RESP: ALBUTEROL 2.5 MG/IPRATROPIUM 0.5 MG NEB (SCH) NEB ×4 (03:21→20:57)
[2017-05-15] MEDS: KETOROLAC TROMETHAMINE 30 MG/ML (IVP) VIAL IV PUSH PRN (03:57)
[2017-05-15] MEDS: AMIODARONE 200 MG TAB PO SCH ×3 (05:33→20:44)
[2017-05-15] MEDS: ACETAMINOPHEN 1000 MG/100 ML 100 ML IV SCH (05:33)
[2017-05-15] MEDS: PANTOPRAZOLE SOD 40 MG DELAYED RELEASE TAB PO SCH (05:34)
--- NOTE | 2017-05-15 06:32 | RADRPT ---
EXAM DATE/TIME: 05/15/2017 04:51 [facility] COMPARISON: CHEST SINGLE AP, May 14, 2017, 11:46. INDICATIONS : Status post CABG. MEDICAL HISTORY : None. SURGICAL HISTORY : CABG. ENCOUNTER: Subsequent ACUITY: 4 - 6 days PAIN SCORE: 0/10 LOCATION: chest FINDINGS: There has been interval extubation and removal of nasogastric tube. Right neck central catheter remai ns in place. Thoracostomy tubes remain in place. There is persistent mild perihilar and bibasilar par enchymal opacity, left worse than right. Cardiac contours are grossly stable. CONCLUSION: Interval extubation. Stable aeration. Scott Mccurdy MD on May 15, 2017 at 6:29 Board Certified Radiologist. This report was verified electronically.
[2017-05-15] MEDS: oxyCODONE/ACETAMINOPHEN 5 MG/325 MG TAB PO PRN ×4 (07:54→20:43)
--- NOTE | 2017-05-15 08:44 | PD.CAR.PN ---
CVT Progress Note Subjective/Hospital Course: 66-year-old male, He has not seen a primary care physician in quite some time , but has signed up with [facility] in [place]. Presented to the emergency room due to a one week history of chest pressure radiating to his jaw and becoming short of breath. He was unable to lie flat. He has also had some cough and congestion for the past one week. Said he had some yellowish sputum. 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 During his workup his EKG showed sinus rhythm with some left ventricular hypertrophy, some T-wave inversion in the lateral leads. Troponin went as high as 10. He underwent cardiac cath 05/[address] Hightower which showed left main disease of 70%. The mid distal LAD 40%. The diagonal 30. The obtuse marginal 95%. The RCA 100%. The echocardiogram showed EF 30-35% moderate LVH , severely reduced LV systolic function. We were consulted due to the multivessel coronary disease. Ct chest noted , bilateral effusion R> L 2/2 CHF recent [place] , mediastinal adenopathy, will need f/u CT as outpt , possible CAP on avelox, no fever PAST MEDICAL HISTORY 1. History of kidney stones. 2. Chronic back pain. 05/13 pain free last pm, for surgery in am 05/14 surgery: Urgent CABG x 2 PEREZ to LAD - good SVG to OM - good L EVH extubated after surgery , crystalloids 3200cc, 750cc cell saver , EBL 1500 05/15 doing fair, had some numbness left hand last night , improved after damion removed started on BB , one dose of lasix , will need low dose boris prior to discharge on statin , amiodarone and ASA pulm toileting transfer to stepdown Objective: GENERAL: A&O SKIN: Warm and dry. prevena to chest , boris wrap to left leg HEAD: Normocephalic. EYES: No scleral icterus. No injection or drainage. NECK: Supple, trachea midline. No JVD or lymphadenopathy. CARDIOVASCULAR: Regular rate and rhythm without murmurs, gallops, or rubs. RESPIRATORY: Breath sounds equal bilaterally. No accessory muscle use. chest tube to wall suction, no air leak , drained 270cc/ 12 hrs GASTROINTESTINAL: Abdomen soft, non-tender, nondistended. MUSCULOSKELETAL: No cyanosis, or edema. BACK: Nontender without obvious deformity. No CVA tenderness. Vital Signs Date Time Temp Pulse Resp B/P (MAP) Pulse Ox O2 Delivery O2 Flow Rate FiO2 05/15/17 05:29 18 05/15/17 05:29 18 05/15/17 04:00 97 Nasal Cannula 3.00 05/15/17 03:00 83 05/15/17 03:00 98.7 83 17 110/71 (84) 98 140/77 (98) 05/15/17 00:34 18 05/15/17 00:00 98 Nasal Cannula 3.00 05/14/17 23:00 93 05/14/17 23:00 98.4 93 17 128/81 (97) 95 138/67 (90) 05/14/17 20:00 95 Nasal Cannula 3.00 05/14/17 20:00 87 05/14/17 19:27 97 Nasal Cannula 3.00 05/14/17 19:00 89 05/14/17 19:00 98.1 89 18 124/83 (97) 92 117/61 (79) 05/14/17 18:05 98.1 05/14/17 18:04 85 05/14/17 17:01 87 05/14/17 16:02 74 05/14/17 16:02 93 Nasal Cannula 5.00 05/14/17 15:22 97.5 05/14/17 15:17 97.5 78 16 136/73 (94) 92 05/14/17 15:16 79 05/14/17 14:01 76 05/14/17 13:36 92 Nasal Cannula 5.00 05/14/17 13:35 78 05/14/17 13:20 91 Nasal Cannula 4 05/14/17 12:28 97.4 05/14/17 12:13 76 05/14/17 12:12 98 90 05/14/17 12:11 100 05/14/17 11:58 97.4 76 12 93/56 (68) 92 05/14/17 11:57 76 05/14/17 11:45 90 100 Labs: Laboratory Tests Test 05/15/17 02:10 White Blood Count 17.2 TH/MM3 (4.0-11.0) Red Blood Count 3.91 MIL/MM3 (4.50-5.90) Hemoglobin 12.7 GM/DL (13.0-17.0) Hematocrit 37.2 % (39.0-51.0) Mean Corpuscular Volume 95.1 FL (80.0-100.0) Mean Corpuscular Hemoglobin 32.5 PG (27.0-34.0) Mean Corpuscular Hemoglobin Concent 34.1 % (32.0-36.0) Red Cell Distribution Width 14.1 % (11.6-17.2) Platelet Count 152 TH/MM3 (150-450) Mean Platelet Volume 9.7 FL (7.0-11.0) Blood Urea Nitrogen 25 MG/DL (7-18) Creatinine 1.39 MG/DL (0.60-1.30) Random Glucose 93 MG/DL (74-106) Calcium Level 7.9 MG/DL (8.5-10.1) Magnesium Level 2.4 MG/DL (1.5-2.5) Sodium Level 142 MEQ/L (136-145) Potassium Level 4.8 MEQ/L (3.5-5.1) Chloride Level 110 MEQ/L (98-107) Carbon Dioxide Level 25.0 MEQ/L (21.0-32.0) Anion Gap 7 MEQ/L (5-15) Estimat Glomerular Filtration Rate 51 ML/MIN (>89) Result Diagram: 05/15/1720905/15/17209 (1) Multi-vessel coronary artery stenosis (2) Non-STEMI (non-ST elevated myocardial infarction) (3) S/P CABG x 2 Plan: on ASA, statin , BB , amiodarone will need BORIS prior to DC , creatinine at baseline (4) Tobacco abuse Plan: smoking cessation (5) Congestive heart failure Plan: one dose of lasix, monitor labs closely (6) FRANK (acute kidney injury) Plan: monitor indices Problem Qualifiers (1) Congestive heart failure: Qualified Codes: I50.9 - Heart failure, unspecified Annalise Shelley May 15, 2017 08:44
[2017-05-15] MEDS ORDERED: BISACODYL 10 MG SUPP RECTAL PRN (08:45)
[2017-05-15] MEDS ORDERED: GLUCAGON 1 MG/ML VIAL OTHER PRN (08:45)
[2017-05-15] MEDS ORDERED: DEXTROSE 50% IN WATER 50 ML VIAL(D50) IV PUSH PRN (08:45)
[2017-05-15] MEDS ORDERED: SOD PHOSPHATE/SOD BIPHOSPHATE (ADULT) ENEMA 133ML RECTAL PRN (08:45)
[2017-05-15] MEDS ORDERED: FUROSEMIDE 40 MG/4 ML VIAL IV PUSH ONE (08:45)
--- NOTE | 2017-05-15 08:57 | RSPPFT ---
DATE OF PROCEDURE: 05/13/17 COMMENTS: VOLUMES DYNAMIC: FVC and FEV1 moderately reduced. FLOWS: FEV1% mildly reduced; FEF 25-75 severely reduced. IMPRESSION: Moderate obstructive ventilatory defect.
[2017-05-15] MEDS: DOCUSATE SODIUM 100 MG CAP PO SCH ×3 (09:00→20:44)
[2017-05-15] MEDS ORDERED: PILL SPLITTER OTHER PRN (09:00)
[2017-05-15] MEDS: SODIUM CHLORIDE 0.9% FLUSH 10 ML FLUSH IV FLUSH SCH ×2 (09:00→20:44)
[2017-05-15] MEDS: INSULIN ASPART SUPPLEMENTAL SCALE SQ SCH ×4 (10:00→20:54)
[2017-05-15] MEDS: ASPIRIN EC 81 MG TABEC PO SCH (10:12)
[2017-05-15] MEDS: MULTIVITAMINS/MINERALS THERAPEUTIC TAB PO SCH (10:12)
[2017-05-15] MEDS: METOPROLOL TARTRATE 25 MG TAB PO SCH ×2 (10:13→20:44)
--- NOTE | 2017-05-15 11:55 | PD.CARD.PN ---
Subjective Subjective Remarks Post-CABG Stable, extubated Up to the chair Objective Medications Current Medications Medications (Trade) Dose Ordered Sig/[place] Route Start Time Stop Time Status Last Admin (Lipitor) 80 mg HS PO 05/13/17 21:00 05/14/17 19:56 (Tylenol) 650 mg Q4H PRN PO 05/12/17 09:45 (Narcan Inj) 0.4 mg UNSCH PRN IV PUSH 05/12/17 09:45 (Lactulose Liq) 30 ml DAILY PRN PO 05/12/17 09:45 (Ecotrin Ec) 81 mg DAILY PO 05/13/17 09:00 05/15/17 10:12 (NovoLIN R INJ) See Protocol Table ... HEAD MACHINIST PRN SQ 05/14/17 01:30 05/17/17 01:29 (NS Flush) 2 ml BID IV FLUSH 05/14/17 21:00 05/14/17 21:00 (NS Flush) 2 ml UNSCH PRN IV FLUSH 05/14/17 11:00 Cefazolin Sodium 1000 mg/Sodium Chloride 100 ml @ 200 mls/hr Q8H IV 05/14/17 16:00 05/16/17 00:29 05/15/17 10:13 (Protonix) 40 mg DAILY@06 PO 05/15/17 06:00 05/15/17 05:34 (Cordarone) 400 mg Q8HR PO 05/14/17 14:00 05/15/17 05:33 (Percocet 5-325 Mg) 1 tab Q3H PRN PO 05/14/17 11:00 05/15/17 07:54 (fentaNYL INJ) 25 mcg Q1H PRN IV PUSH 05/14/17 11:00 05/15/17 04:17 (Zofran Inj) 4 mg Q6H PRN IV PUSH 05/14/17 11:00 (Apresoline Inj) 10 mg Q4H PRN IV PUSH 05/14/17 11:00 (Duoneb Neb) 1 ampule Q6HR WHILE AWAKE NEB NEB 05/15/17 14:00 05/17/17 13:59 (Colace) 100 mg BID PO 05/15/17 08:45 05/15/17 10:12 (Theragran M Tab) 1 tab DAILY PO 05/15/17 09:00 05/15/17 10:12 (Dulcolax Supp) 10 mg UNSCH PRN RECTAL 05/15/17 08:45 (Miralax) 17 gm DAILY PO 05/16/17 09:00 (Senokot) 8.6 mg HS PO 05/15/17 21:00 (Fleets Enema (Adult)) 118 ml UNSCH PRN RECTAL 05/15/17 08:45 (Lopressor) 12.5 mg BID PO 05/15/17 09:00 05/15/17 10:13 (NovoLOG SUPPLEMENTAL SCALE) 1 02,06,10,14,18,22 SQ 05/15/17 10:00 05/16/17 06:01 (D50w (Vial) Inj) 50 ml UNSCH PRN IV PUSH 05/15/17 08:45 (Glucagon Inj) 1 mg UNSCH PRN OTHER 05/15/17 08:45 (Percocet 5-325 Mg) 2 tab Q4H PRN PO 05/15/17 08:45 (NovoLOG SUPPLEMENTAL SCALE) 1 ACHS SQ 05/16/17 12:00 05/17/17 17:01 (Prinivil) 2.5 mg DAILY PO 05/17/17 09:00 (Pill Splitter) 1 ea UNSCH PRN OTHER 05/15/17 09:00 Vital Signs / I&O Vital Signs Date Time Temp Pulse Resp B/P (MAP) Pulse Ox O2 Delivery O2 Flow Rate FiO2 05/15/17 09:04 91 Nasal Cannula 5.00 05/15/17 09:00 16 05/15/17 08:00 98.0 94 21 133/91 (105) 95 Arterial Line 05/15/17 08:00 96 Nasal Cannula 3.00 05/15/17 08:00 94 05/15/17 05:29 18 05/15/17 05:29 18 05/15/17 04:00 97 Nasal Cannula 3.00 05/15/17 03:00 83 05/15/17 03:00 98.7 83 17 110/71 (84) 98 140/77 (98) 05/15/17 00:34 18 05/15/17 00:00 98 Nasal Cannula 3.00 05/14/17 23:00 93 05/14/17 23:00 98.4 93 17 128/81 (97) 95 138/67 (90) 05/14/17 20:00 95 Nasal Cannula 3.00 05/14/17 20:00 87 05/14/17 19:27 97 Nasal Cannula 3.00 05/14/17 19:00 89 05/14/17 19:00 98.1 89 18 124/83 (97) 92 117/61 (79) 05/14/17 18:05 98.1 05/14/17 18:04 85 05/14/17 17:01 87 05/14/17 16:02 74 05/14/17 16:02 93 Nasal Cannula 5.00 05/14/17 15:22 97.5 05/14/17 15:17 97.5 78 16 136/73 (94) 92 05/14/17 15:16 79 05/14/17 14:01 76 05/14/17 13:36 92 Nasal Cannula 5.00 05/14/17 13:35 78 05/14/17 13:20 91 Nasal Cannula 4 05/14/17 12:28 97.4 05/14/17 12:13 76 05/14/17 12:12 98 90 05/14/17 12:11 100 05/14/17 11:58 97.4 76 12 93/56 (68) 92 05/14/17 11:57 76 I/O 05/14/17 05/14/17 05/14/17 05/15/17 05/15/17 05/15/17 07:00 15:00 23:00 07:00 15:00 23:00 Intake Total 240 ml 210 ml 1400 ml 689.4 ml 4 ml Output Total 400 ml 1120 ml 870 ml Balance -160 ml 210 ml 280 ml -180.6 ml 4 ml Intake Oral 240 ml 100 ml 240 ml IV Total 210 ml 1300 ml 449.4 ml 4 ml Output Urine Total 400 ml 820 ml 600 ml Chest Tube Drainage Total 300 ml 270 ml # Bowel Movements 0 0 Physical Exam GENERAL: NAD, AAOx3 SKIN: Warm and dry. HEAD: Atraumatic. Normocephalic. EYES: Pupils equal and round. No scleral icterus. No injection or drainage. ENT: No nasal bleeding or discharge. Mucous membranes pink and moist. NECK: Trachea midline. No JVD. CARDIOVASCULAR: Regular rate and rhythm. Sternotomy clean, dry, and intact RESPIRATORY: No accessory muscle use. Decreased breath sounds bilaterally GASTROINTESTINAL: Abdomen soft, non-tender, nondistended. Hepatic and splenic margins not palpable. MUSCULOSKELETAL: Extremities without clubbing, cyanosis, or edema. No obvious deformities. Right radial no hematoma, neurovascularly intact distally NEUROLOGICAL: Intubated and sedated Laboratory Laboratory Tests Test 05/15/17 02:10 White Blood Count 17.2 TH/MM3 Red Blood Count 3.91 MIL/MM3 Hemoglobin 12.7 GM/DL Hematocrit 37.2 % Mean Corpuscular Volume 95.1 FL Mean Corpuscular Hemoglobin 32.5 PG Mean Corpuscular Hemoglobin Concent 34.1 % Red Cell Distribution Width 14.1 % Platelet Count 152 TH/MM3 Mean Platelet Volume 9.7 FL Blood Urea Nitrogen 25 MG/DL Creatinine 1.39 MG/DL Random Glucose 93 MG/DL Calcium Level 7.9 MG/DL Magnesium Level 2.4 MG/DL Sodium Level 142 MEQ/L Potassium Level 4.8 MEQ/L Chloride Level 110 MEQ/L Carbon Dioxide Level 25.0 MEQ/L Anion Gap 7 MEQ/L Estimat Glomerular Filtration Rate 51 ML/MIN Imaging Last 24 hours Impressions Chest X-Ray 05/15/17 0500 Signed Impressions: Service Date/Time: Monday, May 15, 2017 04:51 - CONCLUSION: Interval extubation. Stable aeration. Scott Mccurdy MD Assessment and Plan Problem List: (1) Multi-vessel coronary artery stenosis ICD Codes: I25.10 - Atherosclerotic heart disease of [place] coronary artery without angina pectoris (2) Non-STEMI (non-ST elevated myocardial infarction) ICD Codes: I21.4 - Non-ST elevation (NSTEMI) myocardial infarction Status: Acute (3) S/P CABG x 2 ICD Codes: Z95.1 - Presence of aortocoronary bypass graft (4) Tobacco abuse ICD Codes: Z72.0 - Tobacco use (5) Congestive heart failure ICD Codes: I50.9 - Heart failure, unspecified Status: Acute (6) FRANK (acute kidney injury) ICD Codes: N17.9 - Acute kidney failure, unspecified Assessment and Plan 1) MVCAD/NSTEMI s/p CABGx2 POD #1 PEREZ to LAD SVG to OM 2) Acute systolic heart failure, EF 30-35% 3) Vent per CT surgery/Critical care 4) ASA/Amio/Statin Plan to add BORIS-I tomorrow if stable 5) If concerns over the weekend/holiday, please call covering physician Problem Qualifiers (1) Congestive heart failure: Qualified Codes: I50.9 - Heart failure, unspecified Lebron Hightower DO May 15, 2017 11:55
[2017-05-15] MEDS: ATORVASTATIN 40 MG TAB PO SCH (20:44)
[2017-05-15] MEDS: SENNOSIDES 8.6 MG TAB PO SCH (20:44)
[2017-05-16] VITALS (30 sets, daily range): BP systolic 108–120; BP diastolic 66–77; PULSE 68–114; RESP 16–19; TEMP 97.9–98.8; O2SAT 92–96
[2017-05-16] MEDS: INSULIN ASPART SUPPLEMENTAL SCALE SQ SCH ×5 (02:00→21:00)
[2017-05-16] MEDS: PANTOPRAZOLE SOD 40 MG DELAYED RELEASE TAB PO SCH (04:59)
[2017-05-16] MEDS: AMIODARONE 200 MG TAB PO SCH ×3 (04:59→21:14)
[2017-05-16 05:54] LABS: BASOPHIL % 0.1 % (0.0-2.0); EOSINOPHIL % 0.3 % (0.0-4.0); HEMATOCRIT 35.4 % (39.0-51.0); HEMO FLAGS DIFF FINAL; LYMPH % 10.5 % (9.0-44.0); LYMPHOCYTE # 1.5 TH/MM3 (1.0-4.8); MEAN CELL VOLUME 96.8 FL (80.0-100.0); MEAN CORPUSCULAR HEMOGLOBIN 32.5 PG (27.0-34.0); MEAN CORPUSCULAR HGB CONC 33.5 % (32.0-36.0); MONO % 9.9 % (0.0-8.0); NEUT % 79.2 % (16.0-70.0); PLATELET COUNT 140 TH/MM3 (150-450); RED BLOOD COUNT 3.66 MIL/MM3 (4.50-5.90); RED CELL DISTRIBUTION WIDTH 13.9 % (11.6-17.2); WHITE BLOOD COUNT 13.9 TH/MM3 (4.0-11.0)
[2017-05-16 06:19] LABS: BICARBONATE 24.1 MEQ/L (21.0-32.0); MAGNESIUM 1.7 MG/DL (1.5-2.5); POTASSIUM 3.8 MEQ/L (3.5-5.1)
[2017-05-16] MEDS: POLYETHYLENE GLYCOL 17 GM PKG PO SCH (09:03)
[2017-05-16] MEDS: MULTIVITAMINS/MINERALS THERAPEUTIC TAB PO SCH (09:04)
[2017-05-16] MEDS: DOCUSATE SODIUM 100 MG CAP PO SCH ×2 (09:04→21:14)
[2017-05-16] MEDS: ASPIRIN EC 81 MG TABEC PO SCH (09:04)
[2017-05-16] MEDS: METOPROLOL TARTRATE 25 MG TAB PO SCH ×2 (09:04→21:14)
[2017-05-16] MEDS: SODIUM CHLORIDE 0.9% FLUSH 10 ML FLUSH IV FLUSH SCH ×2 (09:07→21:15)
[2017-05-16] MEDS: RESP: ALBUTEROL 2.5 MG/IPRATROPIUM 0.5 MG NEB (SCH) NEB ×3 (09:15→20:25)
[2017-05-16] MEDS: POTASSIUM CHLORIDE 10 MEQ CONTROLLED RELEASE TAB PO SCH ×2 (10:55→21:14)
--- NOTE | 2017-05-16 11:29 | PD.CAR.PN ---
CVT Progress Note CVT: POD #: 2 Subjective/Hospital Course: 66-year-old male, He has not seen a primary care physician in quite some time , but has signed up with [facility] in [place]. Presented to the emergency room due to a one week history of chest pressure radiating to his jaw and becoming short of breath. He was unable to lie flat. He has also had some cough and congestion for the past one week. Said he had some yellowish sputum. 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 During his workup his EKG showed sinus rhythm with some left ventricular hypertrophy, some T-wave inversion in the lateral leads. Troponin went as high as 10. He underwent cardiac cath 05/[address] Hightower which showed left main disease of 70%. The mid distal LAD 40%. The diagonal 30. The obtuse marginal 95%. The RCA 100%. The echocardiogram showed EF 30-35% moderate LVH , severely reduced LV systolic function. We were consulted due to the multivessel coronary disease. Ct chest noted , bilateral effusion R> L 2/2 CHF recent [place] , mediastinal adenopathy, will need f/u CT as outpt , possible CAP on avelox, no fever PAST MEDICAL HISTORY 1. History of kidney stones. 2. Chronic back pain. 05/13 pain free last pm, for surgery in am 05/14 surgery: Urgent CABG x 2 PEREZ to LAD - good SVG to OM - good L EVH extubated after surgery , crystalloids 3200cc, 750cc cell saver , EBL 1500 05/15 doing fair, had some numbness left hand last night , improved after damion removed started on BB , one dose of lasix , will need low dose jeana prior to discharge on statin , amiodarone and ASA pulm toileting transfer to stepdown 05/16/17 Improved. c/o pain related to chest tubes Objective: Vital Signs Date Time Temp Pulse Resp B/P (MAP) Pulse Ox O2 Delivery O2 Flow Rate FiO2 05/16/17 11:00 98.5 90 19 116/72 (87) 92 05/16/17 09:15 94 21 05/16/17 08:00 95 Room Air 05/16/17 07:15 98 05/16/17 07:00 97.9 85 17 112/70 (84) 95 05/16/17 06:06 95 05/16/17 05:30 94 05/16/17 04:25 90 05/16/17 04:25 96 Nasal Cannula 1.00 05/16/17 03:53 94 05/16/17 03:52 98.0 90 16 120/77 (91) 96 05/16/17 02:22 91 05/16/17 01:20 96 05/16/17 00:41 97 Nasal Cannula 2.00 05/16/17 00:41 98 05/15/17 23:39 105 05/15/17 23:35 97.9 101 17 138/74 (95) 97 05/15/17 22:00 106 05/15/17 21:00 94 05/15/17 20:57 100 Nasal Cannula 2.00 05/15/17 20:15 100 Nasal Cannula 2.00 05/15/17 20:15 104 05/15/17 19:25 98.0 91 16 130/82 (98) 100 05/15/17 19:20 101 05/15/17 18:00 102 05/15/17 17:00 98 05/15/17 16:00 98 Nasal Cannula 3.00 05/15/17 16:00 96 05/15/17 15:00 98.8 98 20 100/71 (81) 98 05/15/17 15:00 99 05/15/17 14:00 100 05/15/17 13:09 97 Nasal Cannula 3.00 05/15/17 13:09 98.1 88 20 111/76 (88) 97 05/15/17 13:00 106 Labs: Laboratory Tests Test 05/16/17 05:00 White Blood Count 13.9 TH/MM3 (4.0-11.0) Red Blood Count 3.66 MIL/MM3 (4.50-5.90) Hemoglobin 11.9 GM/DL (13.0-17.0) Hematocrit 35.4 % (39.0-51.0) Mean Corpuscular Volume 96.8 FL (80.0-100.0) Mean Corpuscular Hemoglobin 32.5 PG (27.0-34.0) Mean Corpuscular Hemoglobin Concent 33.5 % (32.0-36.0) Red Cell Distribution Width 13.9 % (11.6-17.2) Platelet Count 140 TH/MM3 (150-450) Mean Platelet Volume 9.9 FL (7.0-11.0) Neutrophils (%) (Auto) 79.2 % (16.0-70.0) Lymphocytes (%) (Auto) 10.5 % (9.0-44.0) Monocytes (%) (Auto) 9.9 % (0.0-8.0) Eosinophils (%) (Auto) 0.3 % (0.0-4.0) Basophils (%) (Auto) 0.1 % (0.0-2.0) Neutrophils # (Auto) 11.0 TH/MM3 (1.8-7.7) Lymphocytes # (Auto) 1.5 TH/MM3 (1.0-4.8) Monocytes # (Auto) 1.4 TH/MM3 (0-0.9) Eosinophils # (Auto) 0.0 TH/MM3 (0-0.4) Basophils # (Auto) 0.0 TH/MM3 (0-0.2) CBC Comment DIFF FINAL Differential Comment Blood Urea Nitrogen 25 MG/DL (7-18) Creatinine 1.07 MG/DL (0.60-1.30) Random Glucose 93 MG/DL (74-106) Total Protein 5.0 GM/DL (6.4-8.2) Calcium Level 6.9 MG/DL (8.5-10.1) Magnesium Level 1.7 MG/DL (1.5-2.5) Sodium Level 142 MEQ/L (136-145) Potassium Level 3.8 MEQ/L (3.5-5.1) Chloride Level 111 MEQ/L (98-107) Carbon Dioxide Level 24.1 MEQ/L (21.0-32.0) Anion Gap 7 MEQ/L (5-15) Estimat Glomerular Filtration Rate 69 ML/MIN (>89) Protein Corrected Calcium 8.0 MG/DL (8.5-10.1) Result Diagram: 05/16/17 0500 05/16/17 0500 Cardiovascular: RRR Telemetry: NSR Pulmonary: CTA GI/: NABS, NT Incision: dry and intact CT: 140ml/12 hrs Plan: Remove chest tubes Diurese Supp K Encourage ambulation Stim BM Poss home tomorrow (1) Multi-vessel coronary artery stenosis (2) Non-STEMI (non-ST elevated myocardial infarction) (3) S/P CABG x 2 (4) Tobacco abuse (5) Congestive heart failure (6) FRANK (acute kidney injury) Problem Qualifiers (1) Congestive heart failure: Qualified Codes: I50.9 - Heart failure, unspecified Gracie Donovan MD May 16, 2017 11:29
[2017-05-16] MEDS: oxyCODONE/ACETAMINOPHEN 5 MG/325 MG TAB PO PRN (14:50)
[2017-05-16] MEDS: FUROSEMIDE 40 MG/4 ML VIAL IV PUSH SCH (17:40)
[2017-05-16] MEDS: SENNOSIDES 8.6 MG TAB PO SCH (21:14)
[2017-05-16] MEDS: ATORVASTATIN 40 MG TAB PO SCH (21:14)
[2017-05-17] VITALS (13 sets, daily range): BP systolic 103–109; BP diastolic 64–73; PULSE 75–87; RESP 17–18; TEMP 97.8–98.1; O2SAT 94–98
[2017-05-17] MEDS: AMIODARONE 200 MG TAB PO SCH (05:13)
[2017-05-17] MEDS: PANTOPRAZOLE SOD 40 MG DELAYED RELEASE TAB PO SCH (05:14)
[2017-05-17] MEDS: RESP: ALBUTEROL 2.5 MG/IPRATROPIUM 0.5 MG NEB (SCH) NEB ×2 (08:00→11:17)
[2017-05-17] MEDS: INSULIN ASPART SUPPLEMENTAL SCALE SQ SCH (08:00)
[2017-05-17] MEDS ORDERED: PANT40TA3 PO (08:05)
[2017-05-17] MEDS ORDERED: DOCU1CAP39 PO (08:05)
[2017-05-17] MEDS ORDERED: AMIO200T PO (08:05)
[2017-05-17] MEDS ORDERED: OXYC1TAB63 PO (08:05)
[2017-05-17] MEDS ORDERED: THERM PO (08:05)
[2017-05-17] MEDS ORDERED: LISI-519 PO (08:05)
[2017-05-17] MEDS ORDERED: METO25TA3 PO (08:05)
[2017-05-17] MEDS ORDERED: ATOR40TA16 PO (08:05)
[2017-05-17] MEDS ORDERED: ECASA81 PO (08:05)
--- NOTE | 2017-05-17 08:11 | HHI.DS ---
Discharge Summary Admission Date May 12, 2017 at 09:50 Discharge Date: May 17, 2017 Admitting Diagnosis non-STEMI, CHF (1) Non-STEMI (non-ST elevated myocardial infarction) Diagnosis: Principal ICD Codes: I21.4 - Non-ST elevation (NSTEMI) myocardial infarction Status: Acute (2) Congestive heart failure Diagnosis: Principal ICD Codes: I50.9 - Heart failure, unspecified Status: Acute (3) Tobacco abuse Diagnosis: Secondary ICD Codes: Z72.0 - Tobacco use (4) CAD (coronary artery disease) Diagnosis: Principal ICD Codes: I25.10 - Atherosclerotic heart disease of [place] coronary artery without angina pectoris Procedures CABG [facility] Brief History 66-year-old male, He has not seen a primary care physician in quite some time , but has signed up with [facility] in [place]. Presented to the emergency room due to a one week history of chest pressure radiating to his jaw and becoming short of breath. He was unable to lie flat. He has also had some cough and congestion for the past one week. Said he had some yellowish sputum. 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 During his workup his EKG showed sinus rhythm with some left ventricular hypertrophy, some T-wave inversion in the lateral leads. Troponin went as high as 10. He underwent cardiac cath 05/[address] Hightower which showed left main disease of 70%. The mid distal LAD 40%. The diagonal 30. The obtuse marginal 95%. The RCA 100%. The echocardiogram showed EF 30-35% moderate LVH , severely reduced LV systolic function. We were consulted due to the multivessel coronary disease. Ct chest noted , bilateral effusion R> L 2/2 CHF recent NE , mediastinal adenopathy, will need f/u CT as outpt , possible CAP on avelox, no fever PAST MEDICAL HISTORY 1. History of kidney stones. 2. Chronic back pain. CBC/BMP: 05/16/17 0500 05/16/17 0500 Significant Findings Laboratory Tests Test 05/15/17 02:10 05/16/17 05:00 White Blood Count 17.2 TH/MM3 (4.0-11.0) 13.9 TH/MM3 (4.0-11.0) Red Blood Count 3.91 MIL/MM3 (4.50-5.90) 3.66 MIL/MM3 (4.50-5.90) Hemoglobin 12.7 GM/DL (13.0-17.0) 11.9 GM/DL (13.0-17.0) Hematocrit 37.2 % (39.0-51.0) 35.4 % (39.0-51.0) Blood Urea Nitrogen 25 MG/DL (7-18) 25 MG/DL (7-18) Creatinine 1.39 MG/DL (0.60-1.30) Calcium Level 7.9 MG/DL (8.5-10.1) 6.9 MG/DL (8.5-10.1) Chloride Level 110 MEQ/L (98-107) 111 MEQ/L (98-107) Estimat Glomerular Filtration Rate 51 ML/MIN (>89) 69 ML/MIN (>89) Platelet Count 140 TH/MM3 (150-450) Neutrophils (%) (Auto) 79.2 % (16.0-70.0) Monocytes (%) (Auto) 9.9 % (0.0-8.0) Neutrophils # (Auto) 11.0 TH/MM3 (1.8-7.7) Monocytes # (Auto) 1.4 TH/MM3 (0-0.9) Total Protein 5.0 GM/DL (6.4-8.2) Protein Corrected Calcium 8.0 MG/DL (8.5-10.1) Imaging Last Impressions Chest X-Ray 05/15/17 0500 Signed Impressions: Service Date/Time: Monday, May 15, 2017 04:51 - CONCLUSION: Interval extubation. Stable aeration. Scott Mccurdy MD Lower Extremity Ultrasound 05/12/17 0000 Signed Impressions: Service Date/Time: Friday, May 12, 2017 17:41 - CONCLUSION: Bilateral venous mapping with measurements listed above. Lee Bethea MD Chest CT 05/12/17 0000 Signed Impressions: Service Date/Time: Friday, May 12, 2017 20:19 - CONCLUSION: 1. Bilateral pleural effusions, right greater than left. 2. 2 focal areas of consolidation in the right lung. There is also bibasilar atelectasis or infiltrate adjacent to the pleural effusions. 3. Mediastinal adenopathy. Lee Bethea MD Carotid Artery Ultrasound 05/12/17 0000 Signed Impressions: Service Date/Time: Friday, May 12, 2017 17:20 - CONCLUSION: Mild bilateral carotid plaque formation with hemodynamic profile characteristic of less than 50%% stenosis. Lee Bethea MD PE at Discharge chest - CTA COR - RRR ABD - soft, NT, NABS wound - dry and intact Hospital Course 05/13 pain free last pm, for surgery in am 05/14 surgery: Urgent CABG x 2 PEREZ to LAD - good SVG to OM - good L EVH extubated after surgery , crystalloids 3200cc, 750cc cell saver , EBL 1500 05/15 doing fair, had some numbness left hand last night , improved after damion removed started on BB , one dose of lasix , will need low dose jeana prior to discharge on statin , amiodarone and ASA pulm toileting transfer to stepdown 05/16/17 Improved. c/o pain related to chest tubes Chest tubes removed 05/17/17 Will stim BM and d/c today - doing well, Pt Condition on Discharge: Good Discharge Disposition: Disch w/ Home Health Serv Discharge Instructions DIET: Follow Instructions for: Heart Healthy Diet Activities you can perform: Weight Bearing as Sydnee, Shower Only-No Bath Follow up Referrals: Cardiology - 4 Weeks with Lebron Hightower DO PCP Follow-up Surgical - 2 Weeks with Annalise Shelley New Orders: BASIC METABOLIC PROF - 2 Weeks CBC NO DIFF - 2 Weeks X-RAY CHEST PA & LAT - 2 Weeks New Medications: Amiodarone (Amiodarone) 200 Mg Tab 400 MG PO Q8HR for Regulate Heart Beat, #[address] (Aspirin DR) 81 Mg Tabdr 81 MG PO DAILY for Blood Clot Prevention, #100 TAB 3 Refills Atorvastatin (Atorvastatin) 40 Mg Tab 80 MG PO HS for Cholesterol Management, #60 TAB 3 Refills Docusate Sodium (Dok) 100 Mg Cap 100 MG PO BID for Constipation, #28 CAP Lisinopril (Lisinopril) 5 Mg Tab 2.5 MG PO DAILY for Blood Pressure Management, #30 TAB 3 Refills Metoprolol Tartrate (Metoprolol Tartrate) 25 Mg Tab 12.5 MG PO BID for Blood Pressure Management, #60 TAB 3 Refills Multiple Vitamins W/ Minerals (Thera M Plus) 1 Tab 1 TAB PO DAILY for Nutritional Supplement, #100 TAB 1 Refill Oxycodone HCl/Acetaminophen (Oxycodone-Acetaminophen 5-325) 5 Mg-325 Mg Tablet 1 TAB PO Q3H PRN for PAIN SCALE 1 TO 5, #30 TAB Pantoprazole (Pantoprazole) 40 Mg Tab 40 MG PO DAILY@06 for Prevent Stress Ulcers, #14 TAB Discontinued Medications: Aspirin (Aspirin) 325 Mg Tab 325 MG PO DAILY, #30 TAB 0 Refills Gracie Donovan MD May 17, 2017 08:11
[2017-05-17] MEDS ORDERED: LISINOPRIL 5 MG TAB PO SCH (09:00)
[2017-05-17] MEDS: POLYETHYLENE GLYCOL 17 GM PKG PO SCH (09:00)
[2017-05-17] MEDS: FUROSEMIDE 40 MG/4 ML VIAL IV PUSH SCH (09:16)
[2017-05-17] MEDS: SODIUM CHLORIDE 0.9% FLUSH 10 ML FLUSH IV FLUSH SCH (09:16)
[2017-05-17] MEDS: MULTIVITAMINS/MINERALS THERAPEUTIC TAB PO SCH (09:16)
[2017-05-17] MEDS: DOCUSATE SODIUM 100 MG CAP PO SCH (09:17)
[2017-05-17] MEDS: METOPROLOL TARTRATE 25 MG TAB PO SCH (09:17)
[2017-05-17] MEDS: ASPIRIN EC 81 MG TABEC PO SCH (09:17)
[2017-05-17] MEDS: POTASSIUM CHLORIDE 10 MEQ CONTROLLED RELEASE TAB PO SCH (09:17)
--- NOTE | 2017-05-18 09:58 | EKG ---
Date Performed: 05/15/2017 Time Performed: 16:42:04 PTAGE: 66 years EKG: Sinus tachycardia with PAC(s) Possible left anterior fascicular block Diffuse ST-T changes Borderline ECG PREVIOUS TRACING : 05/12/2017 09.50 Compared to the previous tracing rate faster DOCTOR: Melinda Espinoza Interpretating Date/Time 05/18/2017 09:57:22
== END 2017-05-17 12:40 | disposition home health service (06) | DRG 233 ==
LOC: PHED 08:06 → PHEDA 09:50 → HCIS 14:04 → HCVI 05-14 11:44 → HCPC 05-15 12:45
PROVIDERS: ADMIT Thoracic Surgery (Cardiothoracic Vascular Surgery); ATTEND Thoracic Surgery (Cardiothoracic Vascular Surgery)
PROC: 4A023N7 Measurement of Cardiac Sampling and Pressure, Left Heart, Percutaneous Approach (ICD-10-PCS; 2017-05-12)
PROC: B2111ZZ Fluoroscopy of Multiple Coronary Arteries using Low Osmolar Contrast (ICD-10-PCS; 2017-05-12)
PROC: 02100Z9 Bypass Coronary Artery, One Artery from Left Internal Mammary, Open Approach (ICD-10-PCS; 2017-05-14)
PROC: 06BQ4ZZ Excision of Left Saphenous Vein, Percutaneous Endoscopic Approach (ICD-10-PCS; 2017-05-14)
PROC: 5A1221Z Performance of Cardiac Output, Continuous (ICD-10-PCS; 2017-05-14)
PROC: 021009W Bypass Coronary Artery, One Artery from Aorta with Autologous Venous Tissue, Open Approach (ICD-10-PCS; principal; 2017-05-14 07:15)
DX: I21.4 Non-ST elevation (NSTEMI) myocardial infarction (principal); I25.119 Atherosclerotic heart disease of native coronary artery with unspecified angina pectoris; I50.21 Acute systolic (congestive) heart failure; J18.9 Pneumonia, unspecified organism; N17.9 Acute kidney failure, unspecified; I08.1 Rheumatic disorders of both mitral and tricuspid valves; F17.210 Nicotine dependence, cigarettes, uncomplicated; M54.9 Dorsalgia, unspecified; G89.29 Other chronic pain; R59.0 Localized enlarged lymph nodes; R20.0 Anesthesia of skin; Z87.442 Personal history of urinary calculi
CPT/HCPCS: 71010; 71250; 80048; 80053; 81001; 82550; 82552; 82948; 83036; 83735; 83880; 84155; 84484; 85025; 85027; 85610; 85730; 86850; 86900; 86901; 86920; 87070; 87205; 87641; 93005; 93306; 93458; 93880; 93970; 93998; 94002; 94010; 94150; 94640; 94664; 94667; 94668; 99152; 99153; C1769; C1893; J0131; J0171; J0282; J0690; J1644; J1815; J1817; J1885; J1940; J2150; J2250; J2370; J2440; J2720; J2765; J2930; J3010; J3370; J3475; J3480; J7030; J7040; J7050; J7120; P9047

== ENCOUNTER 2017-10-02 05:37 | Emergency (ER) | payer OTHER ==
[~2017-10-02] VITALS: Ht 180.3 cm; Wt 98.7 kg
[~2017-10-02 05:37] MED LIST changes: +AMIO200T PO; +ATOR40TA16 PO; +DOCU1CAP39 PO; -DOXY100T PO; +ECASA81 PO; +LISI-519 PO; +METO25TA3 PO; +OXYC1TAB63 PO; +PANT40TA3 PO; -SULF-154 PO; +THERM PO
[2017-10-02 05:43] VITALS: BP 158/104; PULSE 92; RESP 18; TEMP 98.6; O2SAT 97
[2017-10-02] MEDS ORDERED: SODIUM CHLORIDE 0.9% FLUSH 10 ML FLUSH IVF PRN (06:00)
[2017-10-02] MEDS ORDERED: RESP: ALBUTEROL 2.5 MG/IPRATROPIUM 0.5 MG NEB (SCH) INH ONE (06:00)
--- NOTE | 2017-10-02 06:02 | PD ---
HPI Chief Complaint: Shortness of breath Time Seen by Provider: 05:59 Travel History International Travel<30 days: No Contact w/Intl Traveler<30days: No History of Present Illness HPI 66-year-old male patient with previous history of [place], status post CABG, hypertension, high cholesterol, presents to the ER today for several days history of coughing, shortness of breath especially with laying down, feels like he cannot lay down, having trouble sleeping. He states that 3 days ago he was started on Chantix which she took once but states that he feels like it was making him feel uneasy and he could go to sleep so he stopped it for 2 days. However, symptoms did not subside. He denies any chest pains, fevers, or any other symptoms. Modifying Factors: Worse with laying down Associated Signs & Symptoms: Shortness of breath, coughing Risk Factors: Cardiac history PFSH Past Medical History Cancer: No Cardiovascular Problems: No Diminished Hearing: No Endocrine: No Immune Disorder: No Kidney Stones: Yes Neurologic: Yes Psychiatric: No Respiratory: No Immunizations Current: No Past Surgical History Genitourinary Surgery: Yes (STONE BLADDER REMOVED 12/01) Social History Alcohol Use: No Tobacco Use: Yes (12PPD) Substance Use: No Allergies-Medications (Allergen,Severity, Reaction): Coded Allergies: No Known Allergies (Verified Allergy, Unknown, 05/12/17) Reported Meds & Prescriptions Reported Meds & Active Scripts Active Thera M Plus (Multivitamins/Minerals Therapeutic) 1 Tab 1 Tab PO DAILY Pantoprazole (Pantoprazole Sodium) 40 Mg Tab 40 Mg PO DAILY@06 Dok (Docusate Sodium) 100 Mg Cap 100 Mg PO BID Oxycodone-Acetaminophen 5-325 (Oxycodone HCl/Acetaminophen) 5 Mg-325 Mg Tablet 1 Tab PO Q3H PRN Aspirin DR (Aspirin) 81 Mg Tabdr 81 Mg PO DAILY Lisinopril 5 Mg Tab 2.5 Mg PO DAILY Metoprolol Tartrate 25 Mg Tab 12.5 Mg PO BID Atorvastatin (Atorvastatin Calcium) 40 Mg Tab 80 Mg PO HS Amiodarone (Amiodarone HCl) 200 Mg Tab 400 Mg PO Q8HR Review of Systems Except as stated in HPI: all other systems reviewed are Neg Physical Exam Narrative GENERAL: Well-developed elderly white male patient currently in mild distress. Awake and oriented 3. SKIN: Focused skin assessment warm/dry. HEAD: Atraumatic. Normocephalic. EYES: Pupils equal and round. No scleral icterus. No injection or drainage. ENT: No nasal bleeding or discharge. Mucous membranes pink and moist. NECK: Trachea midline. No JVD. CARDIOVASCULAR: Regular rate and rhythm. No murmur appreciated. RESPIRATORY: No accessory muscle use. Mild intermittent wheezing. Breath sounds equal bilaterally. GASTROINTESTINAL: Abdomen soft, non-tender, nondistended. Hepatic and splenic margins not palpable. MUSCULOSKELETAL: No obvious deformities. No clubbing. No cyanosis. No edema. NEUROLOGICAL: Awake and alert. No obvious cranial nerve deficits. Motor grossly within normal limits. Normal speech. PSYCHIATRIC: Appropriate mood and affect; insight and judgment normal. Data Data Last Documented VS Vital Signs Date Time Temp Pulse Resp B/P (MAP) Pulse Ox O2 Delivery O2 Flow Rate FiO2 10/02/17 06:15 95 Room Air 10/02/17 06:15 16 10/02/17 06:15 73 10/02/17 05:43 98.6 Orders Orders Complete Blood Count With Diff (10/02/17 05:59) Comprehensive Metabolic Panel (10/02/17 05:59) B-Type Natriuretic Peptide (10/02/17 05:59) Ckmb (Isoenzyme) Profile (10/02/17 05:59) Troponin I (10/02/17 05:59) Iv Access Insert/Monitor (10/02/17 05:59) Electrocardiogram (10/02/17 05:59) Ecg Monitoring (10/02/17 05:59) Oximetry (10/02/17 05:59) Oxygen Administration (10/02/17 05:59) Chest, Single Ap (10/02/17 05:59) Sodium Chloride 0.9% Flush (Ns Flush) (10/02/17 06:00) Albuterol-Ipratropium Neb (Duoneb Neb) (10/02/17 06:00) CKMB (10/02/17 06:18) CKMB% (10/02/17 06:18) Labs Laboratory Tests Test 10/02/17 06:18 White Blood Count 10.4 TH/MM3 Red Blood Count 4.71 MIL/MM3 Hemoglobin 13.9 GM/DL Hematocrit 42.6 % Mean Corpuscular Volume 90.4 FL Mean Corpuscular Hemoglobin 29.4 PG Mean Corpuscular Hemoglobin Concent 32.5 % Red Cell Distribution Width 15.8 % Platelet Count 176 TH/MM3 Mean Platelet Volume 9.0 FL CBC Comment AUTO DIFF Blood Urea Nitrogen 21 MG/DL Creatinine 1.20 MG/DL Random Glucose 102 MG/DL Total Protein 7.3 GM/DL Albumin 3.3 GM/DL Calcium Level 8.3 MG/DL Alkaline Phosphatase 135 U/L Aspartate Amino Transf (AST/SGOT) 36 U/L Alanine Aminotransferase (ALT/SGPT) 57 U/L Total Bilirubin 0.7 MG/DL Sodium Level 142 MEQ/L Potassium Level 4.5 MEQ/L Chloride Level 112 MEQ/L Carbon Dioxide Level 25.8 MEQ/L Anion Gap 4 MEQ/L Estimat Glomerular Filtration Rate 61 ML/MIN Total Creatine Kinase 172 U/L [facility] Medical Decision Making Medical Screen Exam Complete: Yes Emergency Medical Condition: Yes Medical Record Reviewed: Yes Interpretation(s) EKG shows normal sinus rhythm at a rate of 80 bpm with occasional PVCs. No signs of acute ST elevations or depressions. Last 24 hours Impressions Chest X-Ray 10/02/17 0559 Signed Impressions: Service Date/Time: Monday, October 02, 2017 06:14 - CONCLUSION: 1. Moderate left pleural effusion and left basilar density likely atelectasis. 2. Cardiomegaly and CABG. Darío Bedolla MD Laboratory Tests Test 10/02/17 06:18 Blood Urea Nitrogen 21 MG/DL (7-18) Albumin 3.3 GM/DL (3.4-5.0) Calcium Level 8.3 MG/DL (8.5-10.1) Alkaline Phosphatase 135 U/L (45-117) Chloride Level 112 MEQ/L (98-107) Anion Gap 4 MEQ/L (5-15) Estimat Glomerular Filtration Rate 61 ML/MIN (>89) Differential Diagnosis ACS versus bronchitis versus pneumonia versus CHF Narrative Course Patient was wheezing and albuterol was given in the ER. Chest x-ray shows a left pleural effusion and cardiomegaly. Physician Communication Physician Communication Case is signed out at [address] Funes, waiting cardiac enzymes and BNP. Disposition based on findings. Diagnosis Primary Impression: Shortness of breath Eugenio Preston MD October 02, 2017 06:02
[2017-10-02 06:15] VITALS: BP 163/91; PULSE 73; RESP 16; O2SAT 95
[2017-10-02 06:25] LABS: HEMATOCRIT 42.6 % (39.0-51.0); HEMOGLOBIN 13.9 GM/DL (13.0-17.0); MEAN CELL VOLUME 90.4 FL (80.0-100.0); MEAN CORPUSCULAR HEMOGLOBIN 29.4 PG (27.0-34.0); MEAN CORPUSCULAR HGB CONC 32.5 % (32.0-36.0); PLATELET COUNT 176 TH/MM3 (150-450); RED BLOOD COUNT 4.71 MIL/MM3 (4.50-5.90); RED CELL DISTRIBUTION WIDTH 15.8 % (11.6-17.2); WHITE BLOOD COUNT 10.4 TH/MM3 (4.0-11.0)
--- NOTE | 2017-10-02 06:29 | RADRPT ---
EXAM DATE/TIME: 10/02/2017 06:14 [place] COMPARISON: CHEST SINGLE AP, May 15, 2017, 4:51. INDICATIONS : Shortness of breath for 3 days MEDICAL HISTORY : None. SURGICAL HISTORY : CABG. ENCOUNTER: Initial ACUITY: 3 days PAIN SCORE: 0/10 LOCATION: Bilateral chest FINDINGS: A single view of the chest demonstrates moderate left pleural effusion and left basilar density. Card iomegaly and CABG. Osseous structures are intact. CONCLUSION: 1. Moderate left pleural effusion and left basilar density likely atelectasis. 2. Cardiomegaly and CABG. Darío Bedolla MD on October 02, 2017 at 6:27 Board Certified Radiologist. This report was verified electronically.
[2017-10-02 06:34] LABS: CHLORIDE 112 MEQ/L (98-107); SODIUM (NA) 142 MEQ/L (136-145)
[2017-10-02 06:37] LABS: CALCIUM 8.3 MG/DL (8.5-10.1)
[2017-10-02 06:38] LABS: ALBUMIN 3.3 GM/DL (3.4-5.0); BICARBONATE 25.8 MEQ/L (21.0-32.0); BLOOD UREA NITROGEN 21 MG/DL (7-18); GLUCOSE,RANDOM 102 MG/DL (74-106)
[2017-10-02 06:41] LABS: ALT (GPT) 57 U/L (12-78); AST (GOT) 36 U/L (15-37); GLOMERULAR FILTRATION RATE 61 ML/MIN (>89)
[2017-10-02 06:43] LABS: TOTAL BILIRUBIN ADULT 0.7 MG/DL (0.2-1.0); TOTAL PROTEIN 7.3 GM/DL (6.4-8.2)
[2017-10-02 06:44] LABS: ALKALINE PHOSPHATASE 135 U/L (45-117)
[2017-10-02 06:46] LABS: BANDS 3 % (0-6); LYMPHOCYTES 19 % (9-44); MONOCYTES 8 % (0-8); NEUTROPHIL # MANUAL DIFF 7.4 TH/MM3 (1.8-7.7); POLYS (SEG NEUTROPHILS) 68 % (16-70); TROPONIN I 0.03 NG/ML (0.02-0.05)
[2017-10-02] MEDS ORDERED: FUROSEMIDE 40 MG/4 ML VIAL IV PUSH ONE (07:15)
[2017-10-02] MEDS ORDERED: POTASSIUM CHLORIDE 10 MEQ CONTROLLED RELEASE TAB PO ONE (07:15)
--- NOTE | 2017-10-02 07:15 | PD ---
HPI Chief Complaint: Respiratory Symptoms Time Seen by Provider: 06:52 Travel History International Travel<30 days: No Contact w/Intl Traveler<30days: [place] Traveled to: [place] Traveled to known affect area: No History of Present Illness HPI This 66-year-old male is complaining of shortness of breath. Is been feeling short of breath for the last 3 days. The shortness of breath is worse when he lays flat. He has been able to walk in fact he was says he walked his dog about a mile yesterday without trouble. He has not had any chest pain. He was admitted to the hospital in April 2017 with congestive heart failure and chest pain. At that time he had a non-STEMI. He ended up having coronary bypass surgery and has done fairly well since then. He had resumed smoking and had started Chantix a few days ago to try to stop smoking. That was when he started feeling short of breath and he thought the Chantix may have been responsible. He has not had any chest pain. He has not had fever or chills. PFSH Past Medical History Cancer: No Cardiovascular Problems: Yes High Cholesterol: Yes Diminished Hearing: No Endocrine: No Gastrointestinal Disorders: Yes (hernia) Headaches: Yes Hypertension: Yes Immune Disorder: No Inguinal Hernia: Yes Kidney Stones: Yes Neurologic: Yes Psychiatric: No Respiratory: No Immunizations Current: No Myocardial Infarction: Yes Tetanus Vaccination: < 5 Years Influenza Vaccination: No Past Surgical History Coronary Artery Bypass Graft: Yes (APRIL 2017) Genitourinary Surgery: Yes (STONE BLADDER REMOVED 12/01) Social History Alcohol Use: No Tobacco Use: Yes (5-6 CIG/DAY) Substance Use: No Allergies-Medications (Allergen,Severity, Reaction): Coded Allergies: No Known Allergies (Verified Allergy, Unknown, 10/02/17) Reported Meds & Prescriptions Reported Meds & Active Scripts Active Thera M Plus (Multivitamins/Minerals Therapeutic) 1 Tab 1 Tab PO DAILY Aspirin DR (Aspirin) 81 Mg Tabdr 81 Mg PO DAILY Lisinopril 5 Mg Tab 2.5 Mg PO DAILY Metoprolol Tartrate 25 Mg Tab 12.5 Mg PO BID Atorvastatin (Atorvastatin Calcium) 40 Mg Tab 80 Mg PO HS Review of Systems General / Constitutional: No: Fever, Chills Eyes: No: Diploplia HENT: No: Headaches Cardiovascular: No: Chest Pain or Discomfort Respiratory: Positive: Shortness of Breath, Orthopnea Genitourinary: No: Urgency, Frequency Musculoskeletal: No: Myalgias, Arthralgias Skin: No Rash Physical Exam Narrative GENERAL: Well-developed male does not appear in distress SKIN: Focused skin assessment warm/dry. HEAD: Atraumatic. Normocephalic. EYES: Pupils equal and round. No scleral icterus. No injection or drainage. ENT: No nasal bleeding or discharge. Mucous membranes pink and moist. NECK: Trachea midline. No JVD. CARDIOVASCULAR: Regular rate and rhythm. No murmur appreciated. RESPIRATORY: No accessory muscle use. Clear to auscultation. Diminished breath sounds at the left base GASTROINTESTINAL: Abdomen soft, non-tender, nondistended. Hepatic and splenic margins not palpable. MUSCULOSKELETAL: No obvious deformities. No clubbing. No cyanosis. No edema. NEUROLOGICAL: Awake and alert. No obvious cranial nerve deficits. Motor grossly within normal limits. Normal speech. PSYCHIATRIC: Appropriate mood and affect; insight and judgment normal. Data Data Last Documented VS Vital Signs Date Time Temp Pulse Resp B/P (MAP) Pulse Ox O2 Delivery O2 Flow Rate FiO2 10/02/17 06:15 95 Room Air 10/02/17 06:15 16 10/02/17 06:15 73 10/02/17 05:43 98.6 Orders Orders Complete Blood Count With Diff (10/02/17 05:59) Comprehensive Metabolic Panel (10/02/17 05:59) B-Type Natriuretic Peptide (10/02/17 05:59) Ckmb (Isoenzyme) Profile (10/02/17 05:59) Troponin I (10/02/17 05:59) Iv Access Insert/Monitor (10/02/17 05:59) Electrocardiogram (10/02/17 05:59) Ecg Monitoring (10/02/17 05:59) Oximetry (10/02/17 05:59) Oxygen Administration (10/02/17 05:59) Chest, Single Ap (10/02/17 05:59) Sodium Chloride 0.9% Flush (Ns Flush) (10/02/17 06:00) Albuterol-Ipratropium Neb (Duoneb Neb) (10/02/17 06:00) CKMB (10/02/17 06:18) CKMB% (10/02/17 06:18) Furosemide Inj (Lasix Inj) (10/02/17 07:15) Potassium Chloride (Kcl) (10/02/17 07:15) Labs Laboratory Tests Test 10/02/17 06:18 White Blood Count 10.4 TH/MM3 Red Blood Count 4.71 MIL/MM3 Hemoglobin 13.9 GM/DL Hematocrit 42.6 % Mean Corpuscular Volume 90.4 FL Mean Corpuscular Hemoglobin 29.4 PG Mean Corpuscular Hemoglobin Concent 32.5 % Red Cell Distribution Width 15.8 % Platelet Count 176 TH/MM3 Mean Platelet Volume 9.0 FL CBC Comment AUTO DIFF Differential Total Cells Counted 100 Neutrophils % (Manual) 68 % Band Neutrophils % 3 % Lymphocytes % 19 % Monocytes % 8 % Eosinophils % 2 % Neutrophils # (Manual) 7.4 TH/MM3 Differential Comment FINAL DIFF MANUAL Platelet Estimate NORMAL Platelet Morphology Comment NORMAL Red Cell Morphology Comment NORMAL Blood Urea Nitrogen 21 MG/DL Creatinine 1.20 MG/DL Random Glucose 102 MG/DL Total Protein 7.3 GM/DL Albumin 3.3 GM/DL Calcium Level 8.3 MG/DL Alkaline Phosphatase 135 U/L Aspartate Amino Transf (AST/SGOT) 36 U/L Alanine Aminotransferase (ALT/SGPT) 57 U/L Total Bilirubin 0.7 MG/DL Sodium Level 142 MEQ/L Potassium Level 4.5 MEQ/L Chloride Level 112 MEQ/L Carbon Dioxide Level 25.8 MEQ/L Anion Gap 4 MEQ/L Estimat Glomerular Filtration Rate 61 ML/MIN Total Creatine Kinase 172 U/L Creatine Kinase MB 2.4 NG/ML Troponin I 0.03 NG/ML B-Type Natriuretic Peptide 1465 PG/ML [facility] Medical Decision Making Medical Screen Exam Complete: Yes Emergency Medical Condition: Yes Medical Record Reviewed: Yes Differential Diagnosis Differential includes CHF, COPD Narrative Course BNP is 1400. Chest x-ray shows moderate left pleural effusion and some basilar atelectasis. There is cardiomegaly. Impression is congestive heart failure. Troponin is normal. Consideration was given to admission however the patient has expressed a trough strong desire to go home. I will prescribe Lasix and potassium. He has been urged to return if his dyspnea does not improve Diagnosis Primary Impression: Shortness of breath Additional Impression: Congestive heart failure Scripts Potassium Chloride ER (Potassium Chloride ER) 10 Meq Cap 10 MEQ PO DAILY for Electrolyte Replacement, #30 CAP 0 Refills Prov: MacMahon,Chidi MD 10/02/17 Furosemide (Lasix) 40 Mg Tab 40 MG PO DAILY, #30 TAB 0 Refills Prov: Chidi Antoine MD 10/02/17 Disposition: 01 DISCHARGE HOME Condition: Stable Chidi Antoine MD October 02, 2017 07:14
[2017-10-02 07:31] VITALS: BP 141/87; PULSE 85; RESP 16; O2SAT 97
[2017-10-02] MEDS ORDERED: FURO1TAB60 PO (07:35)
[2017-10-02] MEDS ORDERED: POTA10CA PO (07:35)
--- NOTE | 2017-10-03 08:23 | EKG ---
Date Performed: 10/02/2017 Time Performed: 06:02:18 PTAGE: 66 years EKG: Sinus rhythm WITH FREQUENT VENTRICULAR PREMATURE COMPLEXES LEFT ATRIAL ENLARGEMENT LEFT ANTERIOR FASCICULAR BLOCK ST DEVIATION AND MODERATE T-WAVE ABNORMALITY. ABNORMAL ECG INTERPRETATION BASED ON A DEFAULT AGE OF 40 YEARS PREVIOUS TRACING : 05/15/2017 16.42 DOCTOR: Abiodun Perez Interpretating Date/Time 10/03/2017 08:23:32
== END 2017-10-02 08:00 | disposition home or self-care (01) ==
LOC: PHED 05:37
DX: R06.02 Shortness of breath (principal); I50.9 Heart failure, unspecified; I11.0 Hypertensive heart disease with heart failure; R94.31 Abnormal electrocardiogram [ECG] [EKG]; I25.2 Old myocardial infarction; E78.00 Pure hypercholesterolemia, unspecified; F17.210 Nicotine dependence, cigarettes, uncomplicated; Z95.1 Presence of aortocoronary bypass graft; Z79.82 Long term (current) use of aspirin
CPT/HCPCS: 71045; 80053; 82550; 82552; 83880; 84484; 85007; 85027; 93005; 94664; 96374; 99285; J1940